=== PATIENT | female | born 1970 | race Caucasian/White ===

== ENCOUNTER → 2017-11-01 | Outpatient (CLI) | payer OTHER ==
[~2017-11-01] MED LIST: Bactrim Ds Tab1 EACH PO
== END ==
LOC: LAB SRC 14:28 → LAB SHORT 14:28
DX: R32 Unspecified urinary incontinence (principal); R35.0 Frequency of micturition
CPT/HCPCS: 87086

== ENCOUNTER 2017-11-10 11:30 | Inpatient (IN) | payer OTHER ==
[~2017-11-10] VITALS: Ht 167.6 cm; Wt 142.5 kg
[2017-11-10 11:54] LABS: Base Excess Venous 7.7 mmol/L; Bicarbonate Venous 29.1 mmol/L (24.0-30.0); PCO2 Venous 62.8 mmHg (38-42); PO2 Venous 66.6 mmHg (38-42); pH Blood Venous 7.34 (7.34-7.37)
[2017-11-10 12:01] LABS: Hematocrit 49.9 % (33.0-51.0); Mean Corpuscular HGB Conc 30.1 g/dL (31.5-36.5); Mean Platelet Volume 9.5 fL (9.1-12.4); NRBC ABSOLUTE 0.15 K/mm3 (0.00-0.02); NRBC Auto 1.5 /100 WBC (0.0-0.2); Platelet Count 308 K/mm3 (150-400); RDW Coefficient Variation 18.9 % (11.7-14.2); RDW Standard Deviation 51.8 fL (35.1-46.3); Red Blood Cell Count 6.24 M/mm3 (3.80-5.20); White Blood Cell Count 10.32 K/mm3 (4.00-11.30)
[2017-11-10 12:19] LABS: Alanine Aminotransfer (ALT/SGP 18 U/L (12-78); Albumin, Blood 2.7 g/dL (3.4-5.0); Albumin/Globulin Ratio 0.6 (0.8-1.8); Alk Phos 61 U/L (50-136); Anion Gap 9 mmol/L (6-16); Aspartate Aminotrans (AST/SGOT 25 U/L (12-37); Bilirubin, Total 0.3 mg/dL (0.1-1.0); Blood Urea Nitrogen 20 mg/dL (8-24); Bun/Creatinine Ratio 41.5 (12.0-20.0); CO2, Blood 31 mmol/L (21-32); Calcium, Blood 9.7 mg/dL (8.5-10.1); Chloride, Blood 92 mmol/L (98-108); Creatinine, Blood 0.48 mg/dL (0.40-1.00); Globulin, Blood 4.3 g/dL (2.2-4.0); Glomerular Filtration Rate >60 (60-); Glucose, Blood 145 mg/dL (70-99); Mean Corpuscular Volume 80 fL (80-100); Potassium, Blood 4.1 mmol/L (3.5-5.5); Sodium, Blood 132 mmol/L (136-145)
[2017-11-10 12:23] LABS: International Normalized Ratio 1.16; Prothrombin Time Results 12.1 Sec (9.7-11.5)
[2017-11-10] MEDS ORDERED: AMLO5 PO (12:23)
[2017-11-10] MEDS ORDERED: ATOR40TA PO (12:24)
[2017-11-10] MEDS ORDERED: VITAMIN D35000 UNIT PO (12:24)
[2017-11-10] MEDS ORDERED: FLUP5 PO (12:31)
[2017-11-10] MEDS ORDERED: GABA300 PO (12:31)
[2017-11-10] MEDS ORDERED: LOSA50 PO (12:32)
[2017-11-10] MEDS ORDERED: Metformin HCl1000 MG PO (12:32)
[2017-11-10 12:33] LABS: BAND PERCENT MAN 1 % (0-8); BASOPHILS PERCENT MAN 0 % (0-2); EOSINOPHILS PERCENT MAN 1 % (0-6); LYMPHOCYTES % ATYPICAL MANUAL 5 % (0-0); LYMPHOCYTES ABSOLUTE MAN 2.58 K/mm3 (0.84-5.20); LYMPHOCYTES PERCENT MAN 20 % (21-46); MONOCYTES ABSOLUTE MAN 1.03 K/mm3 (0.16-1.47); MONOCYTES PERCENT MAN 10 % (4-13); SEG NEUTROPHILS PERCENT MAN 63 % (41-73); TOTAL CELLS COUNTED 100
[2017-11-10] MEDS ORDERED: INVEGA SUS234 MG/1.5 IM (12:33)
[2017-11-10] MEDS ORDERED: TIOT18 INH (12:33)
[2017-11-10] MEDS ORDERED: METF500C PO (12:34)
[2017-11-10] MEDS ORDERED: INSU100I6 UD (12:34)
[2017-11-10] MEDS ORDERED: ALBU3IS INH (12:35)
[2017-11-10] MEDS ORDERED: TRAM50 PO (12:35)
[2017-11-10] MEDS ORDERED: HYDPAM25 PO (13:05)
[2017-11-10] MEDS ORDERED: BASAGLAR K100 UNIT/1 SC (13:07)
[2017-11-10 22:43] LABS: PO2 Arterial 81.6 mmHg (80-100); pH Blood Arterial 7.28 (7.35-7.45)
[2017-11-10 22:44] LABS: PCO2 Arterial 84.4 mmHg (35-45)
[2017-11-11 04:21] LABS: Hematocrit 47.3 % (33.0-51.0); Hemoglobin 13.8 g/dL (11.5-16.0); Mean Corpuscular HGB 23.9 pg (26.0-34.0); Mean Corpuscular HGB Conc 29.2 g/dL (31.5-36.5); Mean Corpuscular Volume 82 fL (80-100); Mean Platelet Volume 10.2 fL (9.1-12.4); NRBC ABSOLUTE 0.15 K/mm3 (0.00-0.02); NRBC Auto 1.8 /100 WBC (0.0-0.2); Platelet Count 279 K/mm3 (150-400); RDW Coefficient Variation 18.7 % (11.7-14.2); RDW Standard Deviation 54.1 fL (35.1-46.3); Red Blood Cell Count 5.78 M/mm3 (3.80-5.20); White Blood Cell Count 8.42 K/mm3 (4.00-11.30)
[2017-11-11 04:44] LABS: Anion Gap 7 mmol/L (6-16); Blood Urea Nitrogen 10 mg/dL (8-24); Bun/Creatinine Ratio 22.5 (12.0-20.0); CO2, Blood 36 mmol/L (21-32); Calcium, Blood 9.1 mg/dL (8.5-10.1); Chloride, Blood 98 mmol/L (98-108); Creatinine, Blood 0.45 mg/dL (0.40-1.00); Glomerular Filtration Rate >60 (60-); Glucose, Blood 106 mg/dL (70-99); Potassium, Blood 4.2 mmol/L (3.5-5.5); Sodium, Blood 141 mmol/L (136-145)
[2017-11-11 05:11] LABS: PCO2 Arterial 80.4 mmHg (35-45); PO2 Arterial 63.1 mmHg (80-100); pH Blood Arterial 7.31 (7.35-7.45)
[2017-11-11 05:41] LABS: BAND PERCENT MAN 4 % (0-8); BASOPHILS ABSOLUTE MAN 0.08 K/mm3 (0.00-0.23); BASOPHILS PERCENT MAN 1 % (0-2); EOSINOPHILS ABSOLUTE MAN 0.08 K/mm3 (0.00-0.68); EOSINOPHILS PERCENT MAN 1 % (0-6); LYMPHOCYTES % ATYPICAL MANUAL 1 % (0-0); LYMPHOCYTES PERCENT MAN 24 % (21-46); MONOCYTES ABSOLUTE MAN 0.67 K/mm3 (0.16-1.47); MONOCYTES PERCENT MAN 8 % (4-13); NEUTROPHILS ABSOLUTE MAN 5.47 K/mm3 (1.96-9.15); SEG NEUTROPHILS PERCENT MAN 61 % (41-73); TOTAL CELLS COUNTED 100
[2017-11-11] MEDS ORDERED: DIVA500ER PO (11:45)
[2017-11-11] MEDS ORDERED: FLUP5 PO (11:47)
[2017-11-11] MEDS ORDERED: MUPI1NAS (13:10)
[2017-11-11] MEDS ORDERED: ALBU90OI INH (13:10)
[2017-11-11] MEDS ORDERED: Nyamyc15 GM TOP (13:12)
[2017-11-12 01:34] LABS: PO2 Arterial 56.2 mmHg (80-100)
[2017-11-12 01:35] LABS: PCO2 Arterial 93.7 mmHg (35-45); pH Blood Arterial 7.27 (7.35-7.45)
[2017-11-12 02:48] LABS: PO2 Arterial 56.9 mmHg (80-100); pH Blood Arterial 7.29 (7.35-7.45)
[2017-11-12 03:42] LABS: U Amphetamine Screen Not Detected; U Barbituate Screen Not Detected; U Benzodiazapine Screen Not Detected; U Buprenorphine Screen Not Detected; U Cannabinoids Screen Not Detected; U Cocaine Screen Not Detected; U Methadone Screen Not Detected; U Methamphetamine Screen Not Detected; U Opiates Screen DETECTED; U Oxycodone Screen Not Detected; U Phencyclidine Screen Not Detected; U Propoxyphene Screen Not Detected
[2017-11-12 04:55] LABS: BASOPHILS ABSOLUTE AUTO 0.02 K/mm3 (0.00-0.23); BASOPHILS PERCENT AUTO 0 % (0-2); EOSINOPHILS ABSOLUTE AUTO 0.01 K/mm3 (0.00-0.68); EOSINOPHILS PERCENT AUTO 0 % (0-6); Hematocrit 48.8 % (33.0-51.0); IMMATURE GRAN ABSOLUTE AUTO 0.04 K/mm3 (0.00-0.10); IMMATURE GRAN PERCENT AUTO 1 % (0-1); LYMPHOCYTES ABSOLUTE AUTO 1.42 K/mm3 (0.84-5.20); LYMPHOCYTES PERCENT AUTO 17 % (21-46); MONOCYTES ABSOLUTE AUTO 0.32 K/mm3 (0.16-1.47); MONOCYTES PERCENT AUTO 4 % (4-13); Mean Corpuscular HGB 24.1 pg (26.0-34.0); Mean Corpuscular HGB Conc 28.7 g/dL (31.5-36.5); Mean Corpuscular Volume 84 fL (80-100); Mean Platelet Volume 10.4 fL (9.1-12.4); NEUTROPHILS ABSOLUTE AUTO 6.46 K/mm3 (1.96-9.15); NEUTROPHILS PERCENT AUTO 78 % (41-73); NRBC ABSOLUTE 0.06 K/mm3 (0.00-0.02); NRBC Auto 0.7 /100 WBC (0.0-0.2); Platelet Count 270 K/mm3 (150-400); RDW Coefficient Variation 18.9 % (11.7-14.2); RDW Standard Deviation 54.9 fL (35.1-46.3); Red Blood Cell Count 5.82 M/mm3 (3.80-5.20); White Blood Cell Count 8.27 K/mm3 (4.00-11.30)
[2017-11-12 05:00] LABS: PCO2 Arterial 86.6 mmHg (35-45); PO2 Arterial 74.1 mmHg (80-100); pH Blood Arterial 7.29 (7.35-7.45)
[2017-11-12 05:13] LABS: Anion Gap 4 mmol/L (6-16); Blood Urea Nitrogen 13 mg/dL (8-24); Bun/Creatinine Ratio 30.3 (12.0-20.0); CO2, Blood 38 mmol/L (21-32); Calcium, Blood 9.2 mg/dL (8.5-10.1); Chloride, Blood 98 mmol/L (98-108); Creatinine, Blood 0.43 mg/dL (0.40-1.00); Glomerular Filtration Rate >60 (60-); Glucose, Blood 152 mg/dL (70-99); Potassium, Blood 4.9 mmol/L (3.5-5.5); Sodium, Blood 140 mmol/L (136-145)
[2017-11-12 15:34] LABS: Vancomycin, Trough 13.7 ug/mL (5.0-10.0)
[2017-11-13 04:09] LABS: BASOPHILS ABSOLUTE AUTO 0.02 K/mm3 (0.00-0.23); BASOPHILS PERCENT AUTO 0 % (0-2); EOSINOPHILS ABSOLUTE AUTO 0.01 K/mm3 (0.00-0.68); EOSINOPHILS PERCENT AUTO 0 % (0-6); Hemoglobin 13.1 g/dL (11.5-16.0); IMMATURE GRAN ABSOLUTE AUTO 0.03 K/mm3 (0.00-0.10); IMMATURE GRAN PERCENT AUTO 0 % (0-1); LYMPHOCYTES PERCENT AUTO 18 % (21-46); MONOCYTES ABSOLUTE AUTO 0.44 K/mm3 (0.16-1.47); MONOCYTES PERCENT AUTO 6 % (4-13); Mean Corpuscular HGB Conc 28.5 g/dL (31.5-36.5); Mean Corpuscular Volume 84 fL (80-100); Mean Platelet Volume 10.2 fL (9.1-12.4); NEUTROPHILS ABSOLUTE AUTO 5.26 K/mm3 (1.96-9.15); NEUTROPHILS PERCENT AUTO 75 % (41-73); NRBC ABSOLUTE 0.04 K/mm3 (0.00-0.02); NRBC Auto 0.6 /100 WBC (0.0-0.2); Platelet Count 260 K/mm3 (150-400); RDW Coefficient Variation 18.3 % (11.7-14.2); RDW Standard Deviation 55.5 fL (35.1-46.3); Red Blood Cell Count 5.46 M/mm3 (3.80-5.20); White Blood Cell Count 7.06 K/mm3 (4.00-11.30)
[2017-11-13 04:24] LABS: Anion Gap 2 mmol/L (6-16); Blood Urea Nitrogen 13 mg/dL (8-24); CO2, Blood 39 mmol/L (21-32); Calcium, Blood 9.4 mg/dL (8.5-10.1); Chloride, Blood 97 mmol/L (98-108); Creatinine, Blood 0.39 mg/dL (0.40-1.00); Glomerular Filtration Rate >60 (60-); Glucose, Blood 180 mg/dL (70-99); Potassium, Blood 4.8 mmol/L (3.5-5.5); Sodium, Blood 138 mmol/L (136-145)
[2017-11-13 05:12] LABS: pH Blood Arterial 7.36 (7.35-7.45)
[2017-11-13 05:13] LABS: PCO2 Arterial 75.2 mmHg (35-45)
[2017-11-14 07:18] LABS: BASOPHILS ABSOLUTE AUTO 0.03 K/mm3 (0.00-0.23); BASOPHILS PERCENT AUTO 0 % (0-2); EOSINOPHILS ABSOLUTE AUTO 0.01 K/mm3 (0.00-0.68); EOSINOPHILS PERCENT AUTO 0 % (0-6); Hematocrit 46.1 % (33.0-51.0); Hemoglobin 13.4 g/dL (11.5-16.0); IMMATURE GRAN ABSOLUTE AUTO 0.04 K/mm3 (0.00-0.10); IMMATURE GRAN PERCENT AUTO 1 % (0-1); LYMPHOCYTES ABSOLUTE AUTO 1.84 K/mm3 (0.84-5.20); LYMPHOCYTES PERCENT AUTO 23 % (21-46); MONOCYTES ABSOLUTE AUTO 0.76 K/mm3 (0.16-1.47); MONOCYTES PERCENT AUTO 9 % (4-13); Mean Corpuscular HGB 23.9 pg (26.0-34.0); Mean Corpuscular HGB Conc 29.1 g/dL (31.5-36.5); Mean Corpuscular Volume 82 fL (80-100); Mean Platelet Volume 9.6 fL (9.1-12.4); NEUTROPHILS PERCENT AUTO 67 % (41-73); NRBC ABSOLUTE 0.02 K/mm3 (0.00-0.02); NRBC Auto 0.2 /100 WBC (0.0-0.2); Platelet Count 260 K/mm3 (150-400); RDW Coefficient Variation 18.6 % (11.7-14.2); RDW Standard Deviation 54.6 fL (35.1-46.3); White Blood Cell Count 8.18 K/mm3 (4.00-11.30)
[2017-11-14 07:32] LABS: Anion Gap 5 mmol/L (6-16); Blood Urea Nitrogen 15 mg/dL (8-24); Bun/Creatinine Ratio 39.2 (12.0-20.0); CO2, Blood 39 mmol/L (21-32); Calcium, Blood 9.3 mg/dL (8.5-10.1); Chloride, Blood 96 mmol/L (98-108); Creatinine, Blood 0.38 mg/dL (0.40-1.00); Glomerular Filtration Rate >60 (60-); Glucose, Blood 227 mg/dL (70-99); Potassium, Blood 4.4 mmol/L (3.5-5.5); Sodium, Blood 140 mmol/L (136-145)
[2017-11-14 07:33] LABS: Vancomycin, Trough 6.2 ug/mL (5.0-10.0)
[2017-11-16] MEDS ORDERED: INSDET100 SC (12:17)
[2017-11-16] MEDS ORDERED: Aspir 8181 MG PO (12:21)
[2017-11-16] MEDS ORDERED: BENZ100A PO (12:23)
[2017-11-16] MEDS ORDERED: CARV6.25 PO (12:24)
[2017-11-16] MEDS ORDERED: BUDE.5 NEB (12:24)
[2017-11-16] MEDS ORDERED: DOCU100 PO (12:25)
[2017-11-16] MEDS ORDERED: ALBU3IS INH (12:26)
[2017-11-16] MEDS ORDERED: LEVO750 PO (12:27)
[2017-11-16] MEDS ORDERED: DELTASONE20 MG PO (12:28)
[2017-11-16] MEDS ORDERED: PANT40 PO (12:29)
== END 2017-11-16 15:18 | disposition home or self-care (01) | DRG 871 ==
LOC: ER 11:30 → PCU 13:17 → ICUW 11-12 02:24 → ICUE 11-13 19:30 → PCU 11-14 10:25
PROVIDERS: Emergency Medicine; Internal Medicine; Internal Medicine Pulmonary Disease; Pharmacist
DX: A41.9 Sepsis, unspecified organism (principal); J18.9 Pneumonia, unspecified organism; J96.21 Acute and chronic respiratory failure with hypoxia; I21.4 Non-ST elevation (NSTEMI) myocardial infarction; G93.40 Encephalopathy, unspecified; J96.22 Acute and chronic respiratory failure with hypercapnia; J44.0 Chronic obstructive pulmonary disease with (acute) lower respiratory infection; J44.1 Chronic obstructive pulmonary disease with (acute) exacerbation; E66.2 Morbid (severe) obesity with alveolar hypoventilation; Z68.43 Body mass index [BMI] 50.0-59.9, adult; F20.9 Schizophrenia, unspecified; I10 Essential (primary) hypertension; Z79.4 Long term (current) use of insulin; F25.9 Schizoaffective disorder, unspecified; G47.33 Obstructive sleep apnea (adult) (pediatric); E78.5 Hyperlipidemia, unspecified; E11.65 Type 2 diabetes mellitus with hyperglycemia; R65.20 Severe sepsis without septic shock
CPT/HCPCS: 36415; 36600; 51702; 71045; 71046; 80048; 80053; 80202; 82803; 82947; 83880; 84443; 84484; 85025; 85610; 93005; 93010; 93306; 94640; 94660; 94761; 94762; 96374; 99285; C9113; J1650; J1815; J1956; J2920; J3370; J7030; J7050; J7120; Q0177

== ENCOUNTER 2019-11-06 13:42 | Emergency (ER) | payer OTHER ==
[~2019-11-06] VITALS: Ht 162.6 cm; Wt 139.2 kg
[~2019-11-06 13:42] MED LIST changes: +ALBU3IS INH; +ALBU90OI INH; +AMLO5 PO; +ATOR40TA PO; +Aspir 8181 MG PO; +BASAGLAR K100 UNIT/1 SC; +BENZ100A PO; +BUDE.5 NEB; +CARV6.25 PO; +DELTASONE20 MG PO; +DIVA500ER PO; +DOCU100 PO; +FLUP5 PO; +GABA300 PO; +HYDPAM25 PO; +INSDET100 SC; +INSU100I6 UD; +INVEGA SUS234 MG/1.5 IM; +LEVO750 PO; +LOSA50 PO; +METF500C PO; +MUPI1NAS; +Metformin HCl1000 MG PO; +Nyamyc15 GM TOP; +PANT40 PO; +TIOT18 INH; +TRAM50 PO; +VITAMIN D35000 UNIT PO
[2019-11-06 15:33] LABS: BASOPHILS ABSOLUTE AUTO 0.07 K/mm3 (0.00-0.23); BASOPHILS PERCENT AUTO 1 % (0-2); EOSINOPHILS ABSOLUTE AUTO 0.14 K/mm3 (0.00-0.68); EOSINOPHILS PERCENT AUTO 2 % (0-6); Hematocrit 43.7 % (33.0-51.0); Hemoglobin 12.9 g/dL (11.5-16.0); IMMATURE GRAN ABSOLUTE AUTO 0.02 K/mm3 (0.00-0.10); IMMATURE GRAN PERCENT AUTO 0 % (0-1); LYMPHOCYTES ABSOLUTE AUTO 3.63 K/mm3 (0.84-5.20); LYMPHOCYTES PERCENT AUTO 41 % (21-46); MONOCYTES ABSOLUTE AUTO 0.81 K/mm3 (0.16-1.47); MONOCYTES PERCENT AUTO 9 % (4-13); Mean Corpuscular HGB 28.2 pg (26.0-34.0); Mean Corpuscular HGB Conc 29.5 g/dL (31.5-36.5); Mean Corpuscular Volume 95 fL (80-100); Mean Platelet Volume 11.4 fL (9.1-12.4); NEUTROPHILS ABSOLUTE AUTO 4.09 K/mm3 (1.96-9.15); NEUTROPHILS PERCENT AUTO 47 % (41-73); Platelet Count 229 K/mm3 (150-400); RDW Coefficient Variation 15.1 % (11.7-14.2); RDW Standard Deviation 52.8 fL (35.1-46.3); Red Blood Cell Count 4.58 M/mm3 (3.80-5.20); White Blood Cell Count 8.76 K/mm3 (4.00-11.30)
[2019-11-06 15:51] LABS: Anion Gap 5 mmol/L (6-16); Blood Urea Nitrogen 10 mg/dL (8-24); Bun/Creatinine Ratio 23.3 (12.0-20.0); CO2, Blood 34 mmol/L (21-32); Chloride, Blood 102 mmol/L (98-108); Creatinine, Blood 0.43 mg/dL (0.40-1.00); Glomerular Filtration Rate >60 (60-); Glucose, Blood 142 mg/dL (70-99); Potassium, Blood 4.3 mmol/L (3.5-5.5); Sodium, Blood 141 mmol/L (136-145)
[2019-11-06 16:05] LABS: Source, Urine Clean Catch
[2019-11-06 16:09] LABS: PCO2 Venous 63.2 mmHg (38-42); pH Blood Venous 7.36 (7.34-7.37)
[2019-11-06 16:10] LABS: Bicarbonate Venous 31.6 mmol/L (24.0-30.0); PO2 Venous 91.7 mmHg (38-42)
[2019-11-06 16:15] LABS: Bilirubin, Urine Neg (Neg); Blood, Urine Neg (Neg); Glucose Qualitative, Urine Neg (Neg); Ketones, Urine 1+ (Neg); Leukocyte Esterase, Urine 1+ (Neg); Nitrite, Urine Neg (Neg); Protein, Urine 1+ (Neg); Urobilinogen, Urine 1+ (Normal)
[2019-11-06 16:22] LABS: Appearance, Urine Clear (Clear); Color, Urine Yellow (P-Yellow); White Blood Cells, Urine 0-2 /hpf (0-5)
[2019-11-06 16:23] LABS: Bacteria Few /hpf; Red Blood Cells, Urine Not Seen /hpf (0-2); Squamous Epithelial Cells Few /hpf (Few)
== END 2019-11-06 18:49 | disposition home or self-care (01) ==
LOC: ER 13:42
PROVIDERS: Emergency Medicine; Physician Assistant
DX: J44.9 Chronic obstructive pulmonary disease, unspecified (principal); R42 Dizziness and giddiness; F20.9 Schizophrenia, unspecified; F17.210 Nicotine dependence, cigarettes, uncomplicated; E11.9 Type 2 diabetes mellitus without complications; I10 Essential (primary) hypertension; E78.5 Hyperlipidemia, unspecified; Z87.01 Personal history of pneumonia (recurrent); Z88.0 Allergy status to penicillin; Z88.8 Allergy status to other drugs, medicaments and biological substances; Z79.4 Long term (current) use of insulin; Z79.82 Long term (current) use of aspirin; Z79.899 Other long term (current) drug therapy; Z79.891 Long term (current) use of opiate analgesic
CPT/HCPCS: 36415; 70450; 71045; 80048; 81001; 82803; 83880; 84484; 85025; 87077; 87086; 87186; 93005; 93010; 99285-25

== ENCOUNTER 2020-05-01 16:44 | Emergency (ER) | payer OTHER ==
[~2020-05-01] VITALS: Ht 160 cm; Wt 138.3 kg
[2020-05-01 20:39] LABS: BASOPHILS PERCENT AUTO 1 % (0-2); EOSINOPHILS ABSOLUTE AUTO 0.16 K/mm3 (0.00-0.68); EOSINOPHILS PERCENT AUTO 2 % (0-6); Hematocrit 43.2 % (33.0-51.0); IMMATURE GRAN ABSOLUTE AUTO 0.02 K/mm3 (0.00-0.10); IMMATURE GRAN PERCENT AUTO 0 % (0-1); LYMPHOCYTES ABSOLUTE AUTO 4.12 K/mm3 (0.84-5.20); LYMPHOCYTES PERCENT AUTO 45 % (21-46); MONOCYTES ABSOLUTE AUTO 0.83 K/mm3 (0.16-1.47); MONOCYTES PERCENT AUTO 9 % (4-13); Mean Corpuscular HGB 26.2 pg (26.0-34.0); Mean Corpuscular HGB Conc 30.1 g/dL (31.5-36.5); Mean Corpuscular Volume 87 fL (80-100); Mean Platelet Volume 11.3 fL (9.1-12.4); NEUTROPHILS ABSOLUTE AUTO 3.89 K/mm3 (1.96-9.15); NEUTROPHILS PERCENT AUTO 43 % (41-73); Platelet Count 226 K/mm3 (150-400); RDW Coefficient Variation 16.1 % (11.7-14.2); RDW Standard Deviation 51.4 fL (35.1-46.3); Red Blood Cell Count 4.96 M/mm3 (3.80-5.20); White Blood Cell Count 9.12 K/mm3 (4.00-11.30)
[2020-05-01 20:57] LABS: Alanine Aminotransfer (ALT/SGP 18 U/L (12-78); Albumin, Blood 3.1 g/dL (3.4-5.0); Albumin/Globulin Ratio 0.8 (0.8-1.8); Alk Phos 59 U/L (50-136); Anion Gap 3 mmol/L (6-16); Aspartate Aminotrans (AST/SGOT 13 U/L (12-37); Bilirubin, Total 0.2 mg/dL (0.1-1.0); Blood Urea Nitrogen 10 mg/dL (8-24); Bun/Creatinine Ratio 25.8 (12.0-20.0); CO2, Blood 35 mmol/L (21-32); Calcium, Blood 9.2 mg/dL (8.5-10.1); Chloride, Blood 99 mmol/L (98-108); Creatinine, Blood 0.39 mg/dL (0.40-1.00); Globulin, Blood 4.1 g/dL (2.2-4.0); Glomerular Filtration Rate >60 (60-); Glucose, Blood 211 mg/dL (70-99); Potassium, Blood 4.3 mmol/L (3.5-5.5); Sodium, Blood 137 mmol/L (136-145); Total Protein, Blood 7.2 g/dL (6.4-8.2)
[2020-05-01 21:22] LABS: Ethanol (Alcohol), Blood, Med <3 mg/dL; Salicylate 4.7 mg/dL (2.8-20.0)
[2020-05-01 21:24] LABS: Acetaminophen, Random <2.0 ug/mL (10.0-30.0)
[2020-05-01 21:43] LABS: Source, Urine Clean Catch
[2020-05-01 21:45] LABS: CPK Creatine Kinase 48 U/L (26-193); Troponin I <0.015 ng/mL (0.000-0.040)
[2020-05-01 21:48] LABS: Appearance, Urine Clear (Clear); Bilirubin, Urine Neg (Neg); Blood, Urine Neg (Neg); Color, Urine Yellow (P-Yellow); Glucose Qualitative, Urine 2+ (Neg); Ketones, Urine Neg (Neg); Leukocyte Esterase, Urine Neg (Neg); Nitrite, Urine Neg (Neg); Protein, Urine Neg (Neg); Specific Gravity, Urine 1.015 (1.003-1.022); Urobilinogen, Urine NORM (Normal); pH, Urine 6.5 (5.0-8.0)
[2020-05-01 22:01] LABS: U Amphetamine Screen Not Detected; U Barbituate Screen Not Detected; U Benzodiazapine Screen Not Detected; U Buprenorphine Screen Not Detected; U Cannabinoids Screen Not Detected; U Cocaine Screen Not Detected; U Methadone Screen Not Detected; U Methamphetamine Screen Not Detected; U Opiates Screen Not Detected; U Oxycodone Screen Not Detected; U Phencyclidine Screen Not Detected
[2020-05-01 22:02] LABS: U Propoxyphene Screen Not Detected
== END 2020-05-01 23:38 | disposition home or self-care (01) ==
LOC: ER 16:44
PROVIDERS: Emergency Medicine
DX: R53.1 Weakness (principal); J44.9 Chronic obstructive pulmonary disease, unspecified; F20.9 Schizophrenia, unspecified; E11.9 Type 2 diabetes mellitus without complications; I10 Essential (primary) hypertension; E78.5 Hyperlipidemia, unspecified; F17.210 Nicotine dependence, cigarettes, uncomplicated; Z79.899 Other long term (current) drug therapy; Z79.4 Long term (current) use of insulin; Z79.82 Long term (current) use of aspirin; Z79.52 Long term (current) use of systemic steroids; Z88.0 Allergy status to penicillin; Z88.8 Allergy status to other drugs, medicaments and biological substances
CPT/HCPCS: 36415; 71046; 80053; 81003; 82550; 83605; 84484; 85025; 93005; 93010; 96360; 99284-25; G0480; J7030

== ENCOUNTER 2020-08-16 08:52 | Emergency (ER) | payer OTHER ==
[~2020-08-16] VITALS: Ht 162.6 cm; Wt 140.6 kg
[2020-08-16 10:31] LABS: BASOPHILS ABSOLUTE AUTO 0.07 K/mm3 (0.00-0.23); BASOPHILS PERCENT AUTO 1 % (0-2); EOSINOPHILS PERCENT AUTO 1 % (0-6); Hematocrit 42.6 % (33.0-51.0); Hemoglobin 13.1 g/dL (11.5-16.0); IMMATURE GRAN ABSOLUTE AUTO 0.04 K/mm3 (0.00-0.10); IMMATURE GRAN PERCENT AUTO 0 % (0-1); LYMPHOCYTES ABSOLUTE AUTO 2.25 K/mm3 (0.84-5.20); LYMPHOCYTES PERCENT AUTO 25 % (21-46); MONOCYTES ABSOLUTE AUTO 0.79 K/mm3 (0.16-1.47); MONOCYTES PERCENT AUTO 9 % (4-13); Mean Corpuscular HGB 27.5 pg (26.0-34.0); Mean Corpuscular HGB Conc 30.8 g/dL (31.5-36.5); Mean Corpuscular Volume 90 fL (80-100); Mean Platelet Volume 11.1 fL (9.1-12.4); NEUTROPHILS ABSOLUTE AUTO 5.76 K/mm3 (1.96-9.15); NEUTROPHILS PERCENT AUTO 64 % (41-73); NRBC ABSOLUTE 0.02 K/mm3 (0.00-0.02); NRBC Auto 0.2 /100 WBC (0.0-0.2); Platelet Count 269 K/mm3 (150-400); RDW Coefficient Variation 17.2 % (11.7-14.2); RDW Standard Deviation 56.5 fL (35.1-46.3); Red Blood Cell Count 4.76 M/mm3 (3.80-5.20); White Blood Cell Count 9.01 K/mm3 (4.00-11.30)
[2020-08-16 10:45] LABS: Alanine Aminotransfer (ALT/SGP 20 U/L (12-78); Albumin, Blood 3.2 g/dL (3.4-5.0); Albumin/Globulin Ratio 0.8 (0.8-1.8); Alk Phos 74 U/L (50-136); Anion Gap 3 mmol/L (6-16); Aspartate Aminotrans (AST/SGOT 12 U/L (12-37); Bilirubin, Total 0.2 mg/dL (0.1-1.0); Blood Urea Nitrogen 9 mg/dL (8-24); Bun/Creatinine Ratio 18.1 (12.0-20.0); CO2, Blood 33 mmol/L (21-32); Calcium, Blood 9.2 mg/dL (8.5-10.1); Chloride, Blood 100 mmol/L (98-108); Ethanol (Alcohol), Blood, Med <3 mg/dL; Glomerular Filtration Rate >60 (60-); Glucose, Blood 383 mg/dL (70-99); Potassium, Blood 3.9 mmol/L (3.5-5.5); Salicylate 4.7 mg/dL (2.8-20.0); Sodium, Blood 136 mmol/L (136-145); Total Protein, Blood 7.2 g/dL (6.4-8.2)
[2020-08-16 10:58] LABS: Acetaminophen, Random <2.0 ug/mL (10.0-30.0)
[2020-10-19] MEDS ORDERED: ATROVENT HFA12.9 GM INH (17:36)
[2020-10-19] MEDS ORDERED: ALBU90OI INH (17:36)
[2020-10-19] MEDS ORDERED: Prednisone50 MG PO (17:36)
== END 2020-08-16 11:55 | disposition home or self-care (01) ==
LOC: ER 08:52
PROVIDERS: Emergency Medicine
DX: F20.9 Schizophrenia, unspecified (principal); Z76.5 Malingerer [conscious simulation]; E11.65 Type 2 diabetes mellitus with hyperglycemia; I10 Essential (primary) hypertension; E78.5 Hyperlipidemia, unspecified; J44.9 Chronic obstructive pulmonary disease, unspecified; Z79.4 Long term (current) use of insulin; Z88.0 Allergy status to penicillin; Z88.8 Allergy status to other drugs, medicaments and biological substances
CPT/HCPCS: 36415; 80053; 85025; 99285; G0480; J1815; Q3014

== ENCOUNTER 2020-09-04 14:16 | Emergency (ER) | payer OTHER ==
[2020-10-19] MEDS ORDERED: ATROVENT HFA12.9 GM INH (17:36)
[2020-10-19] MEDS ORDERED: Prednisone50 MG PO (17:36)
[2020-10-19] MEDS ORDERED: ALBU90OI INH (17:36)
== END 2020-09-04 15:13 | disposition left against medical advice (07) ==
LOC: ER 14:16
DX: Z53.21 Procedure and treatment not carried out due to patient leaving prior to being seen by health care provider (principal)

== ENCOUNTER 2020-09-25 16:13 | Emergency (ER) | payer OTHER ==
[~2020-09-25] VITALS: Ht 162.6 cm; Wt 136.1 kg
[2020-09-25 16:55] LABS: BASOPHILS ABSOLUTE AUTO 0.12 K/mm3 (0.00-0.23); BASOPHILS PERCENT AUTO 1 % (0-2); EOSINOPHILS ABSOLUTE AUTO 0.11 K/mm3 (0.00-0.68); EOSINOPHILS PERCENT AUTO 1 % (0-6); Hematocrit 45.3 % (33.0-51.0); Hemoglobin 13.6 g/dL (11.5-16.0); IMMATURE GRAN ABSOLUTE AUTO 0.04 K/mm3 (0.00-0.10); IMMATURE GRAN PERCENT AUTO 0 % (0-1); LYMPHOCYTES PERCENT AUTO 37 % (21-46); MONOCYTES ABSOLUTE AUTO 1.05 K/mm3 (0.16-1.47); MONOCYTES PERCENT AUTO 9 % (4-13); Mean Corpuscular HGB 24.8 pg (26.0-34.0); Mean Corpuscular Volume 83 fL (80-100); Mean Platelet Volume 11.4 fL (9.1-12.4); NEUTROPHILS ABSOLUTE AUTO 5.91 K/mm3 (1.96-9.15); NEUTROPHILS PERCENT AUTO 52 % (41-73); NRBC ABSOLUTE 0.04 K/mm3 (0.00-0.02); NRBC Auto 0.3 /100 WBC (0.0-0.2); Platelet Count 281 K/mm3 (150-400); RDW Coefficient Variation 17.7 % (11.7-14.2); RDW Standard Deviation 52.5 fL (35.1-46.3); Red Blood Cell Count 5.49 M/mm3 (3.80-5.20); White Blood Cell Count 11.43 K/mm3 (4.00-11.30)
[2020-09-25 17:14] LABS: Alanine Aminotransfer (ALT/SGP 14 U/L (12-78); Albumin, Blood 3.1 g/dL (3.4-5.0); Albumin/Globulin Ratio 0.7 (0.8-1.8); Alk Phos 84 U/L (50-136); Anion Gap 4 mmol/L (6-16); Aspartate Aminotrans (AST/SGOT 11 U/L (12-37); Bilirubin, Total 0.2 mg/dL (0.1-1.0); Blood Urea Nitrogen 7 mg/dL (8-24); Bun/Creatinine Ratio 16.1 (12.0-20.0); CO2, Blood 32 mmol/L (21-32); Calcium, Blood 9.6 mg/dL (8.5-10.1); Chloride, Blood 96 mmol/L (98-108); Creatinine, Blood 0.44 mg/dL (0.40-1.00); Globulin, Blood 4.4 g/dL (2.2-4.0); Glomerular Filtration Rate >60 (60-); Glucose, Blood 387 mg/dL (70-99); Potassium, Blood 4.5 mmol/L (3.5-5.5); Sodium, Blood 132 mmol/L (136-145); Total Protein, Blood 7.5 g/dL (6.4-8.2)
[2020-09-25 19:33] LABS: Base Excess Venous 9.5 mmol/L; Bicarbonate Venous 31.6 mmol/L (24.0-30.0); PCO2 Venous 49.5 mmHg (38-42); PO2 Venous 45.2 mmHg (38-42); pH Blood Venous 7.44 (7.34-7.37)
[2020-09-25 19:33] LABS: Source, Urine Clean Catch
[2020-09-25 19:40] LABS: Appearance, Urine Clear (Clear); Bilirubin, Urine Neg (Neg); Blood, Urine Neg (Neg); Color, Urine Amber (P-Yellow); Glucose Qualitative, Urine 3+ (Neg); Ketones, Urine 1+ (Neg); Leukocyte Esterase, Urine 1+ (Neg); Nitrite, Urine Neg (Neg); Protein, Urine 1+ (Neg); Urobilinogen, Urine 1+ (Normal)
[2020-09-25 19:48] LABS: Bacteria Rare /hpf; Red Blood Cells, Urine 0-2 /hpf (0-2); Squamous Epithelial Cells Mod /hpf (Few)
[2020-09-25 19:52] LABS: U Amphetamine Screen Not Detected; U Barbituate Screen Not Detected; U Benzodiazapine Screen Not Detected; U Buprenorphine Screen Not Detected; U Cannabinoids Screen Not Detected; U Cocaine Screen Not Detected; U Methadone Screen Not Detected; U Methamphetamine Screen Not Detected; U Opiates Screen Not Detected; U Oxycodone Screen Not Detected; U Phencyclidine Screen Not Detected; U Propoxyphene Screen Not Detected
== END 2020-09-25 21:20 | disposition home or self-care (01) ==
LOC: ER 16:13
PROVIDERS: Physician Assistant
DX: E11.65 Type 2 diabetes mellitus with hyperglycemia (principal); J44.9 Chronic obstructive pulmonary disease, unspecified; I10 Essential (primary) hypertension; E78.5 Hyperlipidemia, unspecified; F17.200 Nicotine dependence, unspecified, uncomplicated; Z79.52 Long term (current) use of systemic steroids; Z79.4 Long term (current) use of insulin; Z79.899 Other long term (current) drug therapy; Z88.0 Allergy status to penicillin; Z88.8 Allergy status to other drugs, medicaments and biological substances
CPT/HCPCS: 36415; 80053; 81001; 82803; 82947; 83880; 84484; 85025; 93005; 93010; 99285-25; J1815

== ENCOUNTER 2020-11-13 12:37 | Emergency (ER) | payer OTHER ==
[~2020-11-13] VITALS: Ht 162.6 cm; Wt 136.1 kg
[~2020-11-13 12:37] MED LIST changes: +ATROVENT HFA12.9 GM INH; +Prednisone50 MG PO
[2020-11-13 13:22] LABS: BASOPHILS ABSOLUTE AUTO 0.09 K/mm3 (0.00-0.23); BASOPHILS PERCENT AUTO 1 % (0-2); EOSINOPHILS ABSOLUTE AUTO 0.13 K/mm3 (0.00-0.68); EOSINOPHILS PERCENT AUTO 1 % (0-6); Hematocrit 45.3 % (33.0-51.0); Hemoglobin 12.6 g/dL (11.5-16.0); IMMATURE GRAN ABSOLUTE AUTO 0.03 K/mm3 (0.00-0.10); IMMATURE GRAN PERCENT AUTO 0 % (0-1); LYMPHOCYTES PERCENT AUTO 29 % (21-46); MONOCYTES PERCENT AUTO 7 % (4-13); Mean Corpuscular HGB 21.5 pg (26.0-34.0); Mean Corpuscular HGB Conc 27.8 g/dL (31.5-36.5); Mean Corpuscular Volume 77 fL (80-100); Mean Platelet Volume 10.6 fL (9.1-12.4); NEUTROPHILS ABSOLUTE AUTO 6.54 K/mm3 (1.96-9.15); NEUTROPHILS PERCENT AUTO 62 % (41-73); NRBC ABSOLUTE 0.09 K/mm3 (0.00-0.02); NRBC Auto 0.9 /100 WBC (0.0-0.2); Platelet Count 195 K/mm3 (150-400); RDW Standard Deviation 56.5 fL (35.1-46.3); Red Blood Cell Count 5.85 M/mm3 (3.80-5.20); White Blood Cell Count 10.49 K/mm3 (4.00-11.30)
[2020-11-13 13:36] LABS: Alanine Aminotransfer (ALT/SGP 12 U/L (12-78); Albumin, Blood 2.8 g/dL (3.4-5.0); Albumin/Globulin Ratio 0.6 (0.8-1.8); Alk Phos 85 U/L (50-136); Anion Gap 6 mmol/L (6-16); Aspartate Aminotrans (AST/SGOT 11 U/L (12-37); Bilirubin, Total 0.5 mg/dL (0.1-1.0); Blood Urea Nitrogen 5 mg/dL (8-24); CO2, Blood 33 mmol/L (21-32); Calcium, Blood 9.3 mg/dL (8.5-10.1); Chloride, Blood 92 mmol/L (98-108); Globulin, Blood 4.9 g/dL (2.2-4.0); Glomerular Filtration Rate >60 (60-); Glucose, Blood 366 mg/dL (70-99); Potassium, Blood 3.9 mmol/L (3.5-5.5); Sodium, Blood 131 mmol/L (136-145); Total Protein, Blood 7.7 g/dL (6.4-8.2)
[2020-11-13 16:05] LABS: Base Excess Venous 12.4 mmol/L; Bicarbonate Venous 33.7 mmol/L (24.0-30.0); PCO2 Venous 62.9 mmHg (38-42); PO2 Venous 54.5 mmHg (38-42); pH Blood Venous 7.38 (7.34-7.37)
[2020-11-13 16:57] LABS: Source, Urine Voided
[2020-11-13 17:01] LABS: Appearance, Urine Hazy (Clear); Bilirubin, Urine Neg (Neg); Blood, Urine 1+ (Neg); Color, Urine Yellow (P-Yellow); Glucose Qualitative, Urine 4+ (Neg); Ketones, Urine Neg (Neg); Leukocyte Esterase, Urine 3+ (Neg); Nitrite, Urine Neg (Neg); Protein, Urine 1+ (Neg); Specific Gravity, Urine 1.005 (1.003-1.022); Urobilinogen, Urine NORM (Normal)
[2020-11-13 17:09] LABS: Bacteria Many /hpf; Red Blood Cells, Urine 0-2 /hpf (0-2); Squamous Epithelial Cells Many /hpf (Few)
[2020-11-13] MEDS ORDERED: Macrobid 100 M100 MG PO (18:26)
[2020-11-13] MEDS ORDERED: NYSTRIT TOP (18:26)
== END 2020-11-13 18:35 | disposition left against medical advice (07) ==
LOC: ER 12:37
PROVIDERS: Emergency Medicine; Physician Assistant
DX: E11.65 Type 2 diabetes mellitus with hyperglycemia (principal); N39.0 Urinary tract infection, site not specified; B35.6 Tinea cruris; J44.9 Chronic obstructive pulmonary disease, unspecified; I10 Essential (primary) hypertension; E78.5 Hyperlipidemia, unspecified; F17.200 Nicotine dependence, unspecified, uncomplicated; Z79.4 Long term (current) use of insulin; Z88.0 Allergy status to penicillin; Z88.8 Allergy status to other drugs, medicaments and biological substances; Z79.899 Other long term (current) drug therapy
CPT/HCPCS: 36415; 80053; 81001; 82803; 82947; 85025; 87086; 87147; 94640; 99284-25; J7120

== ENCOUNTER 2020-11-29 11:37 | Inpatient (IN) | payer OTHER ==
[~2020-11-29] VITALS: Ht 154.9 cm; Wt 132.7 kg
[~2020-11-29 11:37] MED LIST changes: +Macrobid 100 M100 MG PO; +NYSTRIT TOP
[2020-11-29 12:45] LABS: BASOPHILS ABSOLUTE AUTO 0.05 K/mm3 (0.00-0.23); BASOPHILS PERCENT AUTO 1 % (0-2); EOSINOPHILS ABSOLUTE AUTO 0.14 K/mm3 (0.00-0.68); EOSINOPHILS PERCENT AUTO 2 % (0-6); Hematocrit 42.3 % (33.0-51.0); Hemoglobin 11.6 g/dL (11.5-16.0); IMMATURE GRAN ABSOLUTE AUTO 0.03 K/mm3 (0.00-0.10); IMMATURE GRAN PERCENT AUTO 0 % (0-1); LYMPHOCYTES ABSOLUTE AUTO 2.66 K/mm3 (0.84-5.20); LYMPHOCYTES PERCENT AUTO 32 % (21-46); MONOCYTES ABSOLUTE AUTO 0.73 K/mm3 (0.16-1.47); MONOCYTES PERCENT AUTO 9 % (4-13); Mean Corpuscular HGB 20.9 pg (26.0-34.0); Mean Corpuscular HGB Conc 27.4 g/dL (31.5-36.5); Mean Corpuscular Volume 76 fL (80-100); Mean Platelet Volume 9.6 fL (9.1-12.4); NEUTROPHILS ABSOLUTE AUTO 4.67 K/mm3 (1.96-9.15); NEUTROPHILS PERCENT AUTO 56 % (41-73); NRBC ABSOLUTE 0.13 K/mm3 (0.00-0.02); NRBC Auto 1.6 /100 WBC (0.0-0.2); Platelet Count 371 K/mm3 (150-400); RDW Coefficient Variation 22.4 % (11.7-14.2); RDW Standard Deviation 59.3 fL (35.1-46.3); Red Blood Cell Count 5.56 M/mm3 (3.80-5.20); White Blood Cell Count 8.28 K/mm3 (4.00-11.30)
[2020-11-29 13:09] LABS: Anion Gap 2 mmol/L (6-16); Blood Urea Nitrogen 9 mg/dL (8-24); CO2, Blood 34 mmol/L (21-32); Calcium, Blood 9.3 mg/dL (8.5-10.1); Chloride, Blood 99 mmol/L (98-108); Glomerular Filtration Rate >60 (60-); Glucose, Blood 312 mg/dL (70-99); Potassium, Blood 4.3 mmol/L (3.5-5.5); Sodium, Blood 135 mmol/L (136-145); Total Protein, Blood 6.8 g/dL (6.4-8.2)
[2020-11-29 13:10] LABS: Alanine Aminotransfer (ALT/SGP 13 U/L (12-78); Albumin, Blood 2.4 g/dL (3.4-5.0); Albumin/Globulin Ratio 0.5 (0.8-1.8); Alk Phos 84 U/L (50-136); Aspartate Aminotrans (AST/SGOT 12 U/L (12-37); Bilirubin, Total 0.3 mg/dL (0.1-1.0); Globulin, Blood 4.4 g/dL (2.2-4.0)
[2020-11-29 13:11] LABS: Acetaminophen, Random <2.0 ug/mL (10.0-30.0); Ethanol (Alcohol), Blood, Med <3 mg/dL; Salicylate 6.3 mg/dL (2.8-20.0)
[2020-11-29 13:52] LABS: Source, Urine Clean Catch
[2020-11-29 13:58] LABS: Appearance, Urine Clear (Clear); Bilirubin, Urine Neg (Neg); Blood, Urine Neg (Neg); Color, Urine Yellow (P-Yellow); Glucose Qualitative, Urine 2+ (Neg); Ketones, Urine Neg (Neg); Leukocyte Esterase, Urine 1+ (Neg); Nitrite, Urine Neg (Neg); Protein, Urine 1+ (Neg); Urobilinogen, Urine NORM (Normal)
[2020-11-29 14:06] LABS: Red Blood Cells, Urine 0-2 /hpf (0-2)
[2020-11-29 14:07] LABS: Bacteria Few /hpf; Squamous Epithelial Cells Few /hpf (Few); Transitional Epithelial Cells Few /hpf (0-Rare)
[2020-11-29 14:09] LABS: U Amphetamine Screen Not Detected; U Barbituate Screen Not Detected; U Benzodiazapine Screen Not Detected; U Buprenorphine Screen Not Detected; U Cannabinoids Screen Not Detected; U Cocaine Screen Not Detected; U Methadone Screen Not Detected; U Methamphetamine Screen Not Detected; U Opiates Screen Not Detected; U Oxycodone Screen Not Detected; U Phencyclidine Screen Not Detected; U Propoxyphene Screen Not Detected
[2020-11-29] MEDS ORDERED: INCRUSE ELPT 62.5MCG INH (14:33)
[2020-11-29] MEDS ORDERED: Ventolin/Prove6.7 GM INH (14:33)
[2020-11-29] MEDS ORDERED: DEPAKOTE ER500 M2 PO (14:33)
[2020-11-29] MEDS ORDERED: CARVEDILOL6.25 MG PO (14:34)
[2020-11-29] MEDS ORDERED: FLUP5 PO (14:34)
[2020-11-29] MEDS ORDERED: NEURONTIN PO (14:34)
[2020-11-29] MEDS ORDERED: ATOR40TA PO (14:34)
[2020-11-29] MEDS ORDERED: AMLODIPINE BESYL5 MG PO (14:34)
[2020-11-29] MEDS ORDERED: METFORMIN HCL1000 M7 PO (14:35)
[2020-11-29] MEDS ORDERED: LOSARTAN POTASS25 M2 PO (14:35)
[2020-11-29] MEDS ORDERED: PANTOPRAZOLE SO40 M2 PO (14:35)
[2020-11-29] MEDS ORDERED: NOVOLOG FL100 UNIT/3 SC (14:36)
[2020-11-29] MEDS ORDERED: LEVEMIR FL100 UNIT/2 SC (14:37)
[2020-11-29 16:39] LABS: SARS-Cov-2 (COVID-19) PCR, MMC NEGATIVE (NEGATIVE)
--- NOTE | 2020-11-29 18:27 | NUR ---
ADMIT PT ADMITTED AT 1730. PT ORIENTED TO SELF ONLY. RELUCTANT TO CARE. PT STATES "I JUST WANT TO SMOKE AND DRINK COFFEE" AND "LEAVE ME ALONE". PT SWATTED AT THIS RN WHEN ATTEMPTING TO TAKE HER BP. PT ARRIVED TO UNIT, WET FROM SWEAT AND COVERED IN ORANGE CREAM. PT PROMPTLY GIVEN A BED BATH, REQUIRING 3P ASSIST. PHOTO DOC TAKEN OF ESORIATED GROIN. PT BECAME ANGRY AFTER THIS AND ORDERED US TO LEAVE THE ROOM. PT REFUSED LAB AND REFUSED FOR HER BLOOD SUGAR TO BE TAKEN. PT INFORMED SHE CANNOT EAT DINNER UNTIL WE GET A BLOOD SUGAR. PT YELLED AGAIN AT THIS RN TO LEAVE. PT TO BE MOVED TO THE BACK WHEELER FOR FURTHER MONITORING.
--- NOTE | 2020-11-29 21:30 | NUR ---
IV REFUSED IV FLUSH/ABX
--- NOTE | 2020-11-30 01:40 | NUR ---
LOW O2 NOTICED UPON ROUNDING PATIENT HAD TAKEN OFF OXYGEN. ATTEMPTED TO GET SPO2 WITH VITALS MACHINE; REFUSED TO ALLOW ME TO CHECK. WITH LOTS OF ENCOURAGEMENT. STILL REFUSING TO REPLACE O2 CANNULA ON.
--- NOTE | 2020-11-30 02:20 | NUR ---
BEDSIDE REPORT BEDSIDE REPORT GIVEN TO TOÑA PHILLIPS, ICU. TRANSFER ASSISTANCE REQUIRED FROM MEDICAL BED TO ICU BED.
[2020-11-30 03:18] LABS: BASOPHILS ABSOLUTE AUTO 0.08 K/mm3 (0.00-0.23); BASOPHILS PERCENT AUTO 1 % (0-2); EOSINOPHILS ABSOLUTE AUTO 0.26 K/mm3 (0.00-0.68); EOSINOPHILS PERCENT AUTO 2 % (0-6); Hematocrit 40.4 % (33.0-51.0); IMMATURE GRAN ABSOLUTE AUTO 0.03 K/mm3 (0.00-0.10); IMMATURE GRAN PERCENT AUTO 0 % (0-1); LYMPHOCYTES ABSOLUTE AUTO 5.11 K/mm3 (0.84-5.20); LYMPHOCYTES PERCENT AUTO 46 % (21-46); MONOCYTES ABSOLUTE AUTO 0.68 K/mm3 (0.16-1.47); MONOCYTES PERCENT AUTO 6 % (4-13); Mean Corpuscular HGB 21.2 pg (26.0-34.0); Mean Corpuscular HGB Conc 27.2 g/dL (31.5-36.5); Mean Corpuscular Volume 78 fL (80-100); Mean Platelet Volume 10.3 fL (9.1-12.4); NEUTROPHILS ABSOLUTE AUTO 4.88 K/mm3 (1.96-9.15); NEUTROPHILS PERCENT AUTO 44 % (41-73); NRBC ABSOLUTE 0.12 K/mm3 (0.00-0.02); NRBC Auto 1.1 /100 WBC (0.0-0.2); Platelet Count 329 K/mm3 (150-400); RDW Coefficient Variation 22.3 % (11.7-14.2); RDW Standard Deviation 60.6 fL (35.1-46.3); White Blood Cell Count 11.04 K/mm3 (4.00-11.30)
[2020-11-30 03:52] LABS: Alanine Aminotransfer (ALT/SGP 10 U/L (12-78); Albumin, Blood 2.3 g/dL (3.4-5.0); Albumin/Globulin Ratio 0.6 (0.8-1.8); Alk Phos 74 U/L (50-136); Anion Gap 0 mmol/L (6-16); Aspartate Aminotrans (AST/SGOT 7 U/L (12-37); Bilirubin, Total 0.4 mg/dL (0.1-1.0); Blood Urea Nitrogen 10 mg/dL (8-24); Bun/Creatinine Ratio 16.2 (12.0-20.0); CO2, Blood 37 mmol/L (21-32); Chloride, Blood 99 mmol/L (98-108); Creatinine, Blood 0.62 mg/dL (0.40-1.00); Globulin, Blood 4.1 g/dL (2.2-4.0); Glomerular Filtration Rate >60 (60-); Glucose, Blood 259 mg/dL (70-99); Potassium, Blood 4.8 mmol/L (3.5-5.5); Sodium, Blood 136 mmol/L (136-145); Total Protein, Blood 6.4 g/dL (6.4-8.2)
--- NOTE | 2020-11-30 03:52 | NUR ---
ASSUMED PT CARE FROM ALAN PERSON AT 0215 PT TRANSFERRED TO ICU SECONDARY TO PT REFUSING TO WEAR OXYGEN WITH SPO2 70-80'S ON RA. PT IS ENCEPHALOPATHIC; THEREFORE, ORDERS WERE OBTAINED TO PLACE ON PRECEDEX GTT IN ORDER TO PROVIDE PT WITH OXYGEN. PT ARRIVED ON UNIT ALERT AND CURSING AT STAFF. RESISTANT TO CARES. VERY PARANOID AND THREATENING STAFF STATING IF WE TOUCH HER SHE WILL JORGE A THE [facility]OS[facility]. PT REFUSES TO ANSWER QUESTIONS TO PLACE AND TIME. VERY LABILE WITH MOOD. SHE IS ABLE TO TELL US WHO SHE IS AND WHEN SHE WAS BORN. PT HEARING VOICES. WHEN ASKED WHAT THE VOICES WERE SAYING SHE STATED THEY ARE TELLING HER THAT SHE IS A "WHORE AND A SLUT AND NEEDS TO GO GET FED". PT REFUSED BLOOD PRESSURE CUFF TO BE PLACED ON; THEREFORE, DR. MENESES CALLED WITH ORDERS FOR ATIVAN 1-2 IV Q4 PRN. 2MG ADMINISTERED PER ORDERS. BP CUFF PLACED WITH STABLE VITALS NOTED. PRECEDEX INITIATED AT 0.3MCG/KG/HR; HOWEVER, AFTER ADMINISTRATION OF ATIVAN, IT WAS TITRATED DOWN TO 0.2MCG/KG/HR. PT NOTED TO BE IN NSR WITH HR 80'S. AFEBRILE. 5L OF HIFLOW OXYGEN WITH SPO2 >90%; HOWEVER, ONCE PT FELL ASLEEP OXYGEN SATURATIONS DROPPED TO MID 80'S; THEREFORE, OXYGEN INCREASED TO 7L. RT TO ROOM TO ATTEMPT CPAP. WILL CONTINUE TO MONITOR UNTIL REPORT IS HANDED OFF TO ONCOMING RN. PT HAS MASSIVE EXCORIATION TO BILATERAL INNER LEGS, BUTTOCKS, AND LYN AREA FROM INCONTINENCE. SKIN CARES PROVIDED. BILATERAL GROIN SITES HAVE WHAT APPEARS TO BE OLD INGROWN HAIRS, BUT HAVE NOW FORMED INTO PUSTULES WITH YELLOW, PURULENT DRAINAGE; CLEANSED AREA, PATTED DRY, AND APPLIED ABD PADS TO CREVICES. CATHETER CARES PERFORMED; JACKSON IS PATENT AND DRAINING YELLOW URINE TO GRAVITY.
--- NOTE | 2020-11-30 08:55 | NUR ---
ASSUMED CARE OF PT, REPORT RCV'D FROM ALAN DING. PT ALERT TO SELF AND FOLLOWING COMMANDS. PT EASILY AGITATED BUT REDIRECTABLE. NO EVIDENCE OF AUDITORY OR VISUAL HALLUCINATIONS AT THIS TIME. PRECEDEX TURNED OFF AT 0650 AND PT QUIET AND TOLERATING BIPAP WELL. PT MEDICATED WITH ATIVAN PER EMAR WITH GOOD RESULTS. SATS IN LOW 90'S ON CPAP, PT PLACED ON 5-7 L HFNC WHEN BIPAP OFF. COARSE LUNG SOUNDS BILATERAL UPPER LOBES. WOUNDS TO BILATERAL GROIN/PANNUS. WOUNDS CLEANED WITH WOUND CLEANSER AND DRY ABD PADS PLACED. SKIN EXCORIATED D/T MOISTURE BILATERAL FRONT/BACK THIGHS. WILL REPORT TO DAYSFLFT NURSE.
--- NOTE | 2020-11-30 12:38 | NUR ---
PT CONTINUES ON CPAP WITH SATS IN THE MID 90'S. PRECEDEX REMAINS OFF. PT MEDICATED WIT 1 DOSE OF ATIVAN FOR AGITATION. PT RESTING COMFORTABLY. REPORT GIVEN TO ALAN RIVERA. PT TO BE TRANSFERRED TO PCU 8 WHEN BED AVAILABLE.
--- NOTE | 2020-11-30 15:24 | NUR ---
Provider Call PFF spoke to Dr. Shi in regards to patients living sitrinity health. Pt placed on contact precautions for possible scabies.
--- NOTE | 2020-11-30 16:30 | NUR ---
Report Given to ALAN Sanchez.
--- NOTE | 2020-11-30 19:35 | NUR ---
ROMIE WAS MEDICATED AROUND 1600 WITH ATIVAN FOR HER FRUSTRATION AND INABILITY TO TOLERATE BEING IN THE HOSPITAL. SHE HAD REMOVED ALL OF HER LINES AND CORDS AND SHE WAS ADAMANT THAT SHE WANTED HER DOCTOR. SHE WAS ABLE TO CALM DOWN AFTER GIVEN THE MEDICATION AND SOME SIPS OF DIET PEPSI. THE CPAP WAS REPLACED AND SHE SEEMED TO TOLERATE IT BETTER. AROUND 1730 PT WASN'T ABLE TO KEEP HER SATS UP >85%, RESPIRATORY THERAPY WAS CALLED TO CONSIDER PLACING BIPAP. PT STILL REMAINED SEDATE FROM MEDICATION PRIOR. BLOOD SUGAR WAS COVERED WITH 9 UNITS OF INSULIN WHICH SHE TOLERATED WITHOUT INCIDENT.
--- NOTE | 2020-11-30 20:30 | NUR ---
ASSUMPTION OF CARE REPORT RECEIVED FROM RAFAEL PHILLIPS. PT AWAKE WHEN ENTERED ROOM, REQUESTING SOMETHING TO DRINK FOR DRY MOUTH. CPAP ON, SPO2 96%. PT ORIENTED TO SELF ONLY, FOLLOWING SIMPLE COMMANDS. AFTER ASSESSING PT, SHE BECAME AGITATED REQUESTING A CIGARETTE AND TO GET OUT OF BED. UNABLE TO REORIENT PT TO BEING IN THE HOSPITAL, ATIVAN GIVEN PER EMAR. JACKSON PATENT AND DRAINING TO GRAVITY. PT TOLERATED SIPS OF WATER WITHOUT ISSUE.
[2020-12-01 05:17] LABS: Anion Gap 1 mmol/L (6-16); Blood Urea Nitrogen 13 mg/dL (8-24); Bun/Creatinine Ratio 25.3 (12.0-20.0); CO2, Blood 39 mmol/L (21-32); Calcium, Blood 9.4 mg/dL (8.5-10.1); Chloride, Blood 101 mmol/L (98-108); Creatinine, Blood 0.51 mg/dL (0.40-1.00); Glomerular Filtration Rate >60 (60-); Glucose, Blood 134 mg/dL (70-99); Potassium, Blood 4.5 mmol/L (3.5-5.5); Sodium, Blood 141 mmol/L (136-145)
--- NOTE | 2020-12-01 06:09 | NUR ---
SHIFT SUMMARY PT CONFUSED T/O SHIFT ATTEMPTING TO REMOVE CPAP MASK AND IV LINES, MEDICATED WITH PRN ATIVAN PER EMAR. SPO2 >92% WITH CPAP ON, SPO2 DROPS TO 85% WHEN MASK REMOVED. FREQUENTLY REQUESTING CIGARETTES THIS SHIFT, REMINDED THAT SHE IS IN THE HOSPITAL. ORIENTED TO SELF T/O SHIFT, ORIENTED TO PLACE ONCE THIS SHIFT. CURRENTLY SALINE LOCKED. WOUNDS CLEANED WITH WOUND BOILING HOUSE OILER AND NEW ABD PADS PLACED.
--- NOTE | 2020-12-01 09:36 | NUR ---
PT TRANSFER: PT CONTINUES TO PULL OXYGEN MASK/TUBING OFF FREQUENTLY, NOT TOLERATING BEING OFF OXYGEN, O2 SATS DROP QUICKLY TO MID 80s. PT CONTINUES TO REQUIRE PRN ATIVAN ADMINISTRATION. PT ABLE TO STATE NAME, , THAT SHE IS AT "THE HOSPITAL". PT TRANSFERED TO ICU, REPORT GIVEN TO LAAN HALL.
--- NOTE | 2020-12-01 10:35 | NUR ---
PT RECEIVED FROM ALAN BYRD. SETTLED IN AND CARE GIVEN. VITALS STABLE, O2 VIA NC AT 10L. RESTRAINTS PLACED FOR PATIENT SAFETY. REPORT GIVEN TO ALAN TRAYLOR.
[2020-12-01 13:03] LABS: pH Blood Arterial 7.34 (7.35-7.45)
[2020-12-01 13:04] LABS: PCO2 Arterial 78 mmHg (35-45)
--- NOTE | 2020-12-01 13:19 | NUR ---
1030 RECIEVED REPORT FROM RAFAEL PHILLIPS AND ASSUMED CARE. AFTER ASSESING CHART, IN TO SEE AND ASSESS PT. PT VSS NOTED. SATS 94 AND INC TO 97 ON 10L NC WITH SEDATION FROM PCU AT TIME OF TRANSFER. LUNGS ARE CLEAR AND DEC IN BASES WITH REGULAR RATE AT 20-22. + BOWEL TONES, AND SOFT ABD. JACKSON PATENT OF YELLOW URINE. 1-2+ EDEMA NOTED OF LOWER EXT. PT HAS ONLY ONE IV ACCESS IN RAC AND PATENT WITH IVPB AND THEN NS AT 100 X 500ML AND WILL FOLLOW. PT IS LIGHTLY SEDATE ON PRIOR ATIVAN AND VS REFLECT THE SAME. THERE IS NO CURRENT EVIDENCE OF SCABIES. WILL ADDRESS WITH DR COVINGTON DUE TO CURRENT PO STATUS AND MULTIPLE PO MEDS PO.
--- NOTE | 2020-12-01 13:27 | NUR ---
1130 PT IV SITE ASSESSES AND NEW ATTEMPTS MADE PER BUDDY PHILLIPS FOR NEW SITE. PT ANXIETY INCREASING AND NEW ORDER FOR PRECEDEX GTT OBTAINED. THEN OLD SITE NOTED TO BE LEAKING AFTER PRECEDEX GTT AND PICC ORDER OBTAINED. 1245 DR COVINGTON AND MARTINE IN TO SEE AND ACCESS PT STATUS. ABG THEN OBTAINED AND REPORTED [facility] BIPAP ORDER TO FOLLOW. 1330 PT DISPITE NO OTHER SEDATION REMAINS CALM FOR NOW WITH SATS AND VS NOTED. WILL FOLLOW PROGRESS.
[2020-12-01 17:45] LABS: International Normalized Ratio 1.08; Prothrombin Time Results 11.6 Sec (9.7-11.5)
--- NOTE | 2020-12-01 18:48 | NUR ---
1645 PROLONGED ATTEMPTS FOR ADIQUITE IV ACCESS. PT GENERALLY TOLERATED WELL W/O SEDATION BUT DID REQUIRE ADDITIONAL O2 SUPPORT OF 14L TO MAINTAIN SATS. PT HAD SOME EPISODES OF ANXIETY BUT ONLY FOR SHORT PERIODS AND THEN WOULD DOZE OFF AGAIN. PT TO BE MOVED OVER TO ICU-2.
--- NOTE | 2020-12-01 18:52 | NUR ---
PT DOWN TO CT FOR CTA AT 1715 WITH RT ON BIPAP AT 14/8 50%. PT OFF PRECEDEX FOR THIS TIME AND TOLERATED BEING FLAT DURING THIS TIME. RETURNED W/O INCIDENT. HEPARIN BOLUS AND GTT WITH OTHER MEDS STARTED. PRECEDEX GTT CONT. AND NS AT 100ML.
[2020-12-01 19:11] LABS: Base Excess Venous 15.4 mmol/L; Bicarbonate Venous 36.5 mmol/L (24.0-30.0); PCO2 Venous 74.8 mmHg (38-42); PO2 Venous 97.6 mmHg (38-42); pH Blood Venous 7.35 (7.34-7.37)
--- NOTE | 2020-12-01 19:19 | NUR ---
PT NOTED WITH LOW MINUTE AND TIDAL VOLUMES AND SEDATION DEC. NOTE.
--- NOTE | 2020-12-01 19:30 | NUR ---
SHIFT ASSESSMENT ASSUMED CARE OF PT @ 1900. REPORT RECEIVED FROM ALAN TRAYLOR. PT ON BIPAP c O2 SATS >90%. RT ADJUSTING BIPAP SETTINGS. PT LIGHTLY SEDATED, PRECEDEX INITIALLY @ 0.5MCG/KG/HR, DECREASED TO 0.3 MCG/KG/HR DURING REPORT. PT OPENS EYES AND MOANS TO STIMULI, NOT FOLLOWING COMMANDS. BL SOFT WRIST RESTRAINTS IN PLACE DUE TO PT PULLING OFF BIPAP FOR DAY NURSES. JACKSON CATH PATENT, DRAINING YELLOW/ ROMIE URINE. PEDAL PULSES CONFIRMED VIA DOPPLER. WILL CONTINUE TO MONITOR CLOSELY.
--- NOTE | 2020-12-01 23:04 | NUR ---
UPDATE SHORTLY AFTER 1999 PTS O2 SATS STARTED DECREASING, RT WAS NOTIFIED, PRECEDEX PLACED ON SB. FIO2 TITRATED TO 100% c O2 SATS SLOWLY INCREASING FROM 85% TO 90%. DR. LANDAVERDE NOTIFIED, NEW ORDERS FOR CPT AND SUCTION. PT RESPONDED WELL TO SUCTION/ CPT/ STIMULATION. PT ABLE TO COUGH, MINIMAL SECRETIONS WITH COUGH AND SUCTION. O2 SATS IMPROVED TO 93%, RT IN ROOM TITRATING FIO2. CURRENTLY BIPAP SETTINGS-22/8 @ 60% c O2 SATS >93%. WILL CONTINUE TO MONITOR CLOSELY.
[2020-12-02 05:04] LABS: Base Excess Venous 17.4 mmol/L; Bicarbonate Venous 38.9 mmol/L (24.0-30.0); PCO2 Venous 56.9 mmHg (38-42); PO2 Venous 66.1 mmHg (38-42); pH Blood Venous 7.47 (7.34-7.37)
[2020-12-02 05:06] LABS: BASOPHILS ABSOLUTE AUTO 0.02 K/mm3 (0.00-0.23); BASOPHILS PERCENT AUTO 0 % (0-2); EOSINOPHILS ABSOLUTE AUTO 0.01 K/mm3 (0.00-0.68); EOSINOPHILS PERCENT AUTO 0 % (0-6); Hematocrit 41.1 % (33.0-51.0); Hemoglobin 11.1 g/dL (11.5-16.0); IMMATURE GRAN ABSOLUTE AUTO 0.04 K/mm3 (0.00-0.10); IMMATURE GRAN PERCENT AUTO 0 % (0-1); LYMPHOCYTES ABSOLUTE AUTO 2.15 K/mm3 (0.84-5.20); LYMPHOCYTES PERCENT AUTO 23 % (21-46); MONOCYTES ABSOLUTE AUTO 0.42 K/mm3 (0.16-1.47); MONOCYTES PERCENT AUTO 5 % (4-13); Mean Corpuscular Volume 78 fL (80-100); Mean Platelet Volume 10.2 fL (9.1-12.4); NEUTROPHILS ABSOLUTE AUTO 6.79 K/mm3 (1.96-9.15); NEUTROPHILS PERCENT AUTO 72 % (41-73); NRBC ABSOLUTE 0.03 K/mm3 (0.00-0.02); NRBC Auto 0.3 /100 WBC (0.0-0.2); Platelet Count 260 K/mm3 (150-400); RDW Coefficient Variation 22.1 % (11.7-14.2); RDW Standard Deviation 60.5 fL (35.1-46.3); Red Blood Cell Count 5.29 M/mm3 (3.80-5.20); White Blood Cell Count 9.43 K/mm3 (4.00-11.30)
[2020-12-02 05:34] LABS: Alanine Aminotransfer (ALT/SGP 12 U/L (12-78); Albumin, Blood 2.3 g/dL (3.4-5.0); Albumin/Globulin Ratio 0.6 (0.8-1.8); Alk Phos 64 U/L (50-136); Anion Gap 1 mmol/L (6-16); Aspartate Aminotrans (AST/SGOT 13 U/L (12-37); Bilirubin, Total 0.3 mg/dL (0.1-1.0); Blood Urea Nitrogen 14 mg/dL (8-24); Bun/Creatinine Ratio 32.9 (12.0-20.0); CO2, Blood 38 mmol/L (21-32); Calcium, Blood 9.1 mg/dL (8.5-10.1); Chloride, Blood 101 mmol/L (98-108); Creatinine, Blood 0.43 mg/dL (0.40-1.00); Globulin, Blood 4.1 g/dL (2.2-4.0); Glomerular Filtration Rate >60 (60-); Glucose, Blood 154 mg/dL (70-99); Potassium, Blood 4.6 mmol/L (3.5-5.5); Sodium, Blood 140 mmol/L (136-145); Total Protein, Blood 6.4 g/dL (6.4-8.2)
--- NOTE | 2020-12-02 07:38 | NUR ---
SHIFT SUMMARY PT REMAINS ON BIPAP, SETTINGS CURRENTLY BEING ADJUSTED BY RT. PRECEDEX GTT INFUSING @ 0.2MCG DUE TO PT BECOMING ANXIOUS/ AGITATED. BL SOFT WRIST RESTRAINTS REMAIN IN PLACE DUE TO PT PULLING OFF BIPAP. PT NOT FOLLOWING COMMANDS, CONTINUES TO OCCASIONALLY MOAN WITH STIMULI. PTS BP INCREASING T/O THE MORNING. ONE DOSE OF HYDRALAZINE GIVEN. HTN CONTINUED, DR LANDAVERDE NOTIFIED. NEW ORDERS PLACED FOR DOBHOFF AND AMLODOPINE DURING SHIFT CHANGE. REPORT GIVEN TO ONCOMING NURSE.
--- NOTE | 2020-12-02 08:30 | NUR ---
ASSESSMENT- PT SEDATED WITH PRECEDEX AT 0.2, AWAKENS TO NAME, MOANS. PRECEDEX OFF. AWAKE, AGITATED NOW, ATTEMPT BEDSIDE SWALLOW, ABLE TO TAKE SIPS WATER WITHOUT PROBLEMS. REFUSED TO TAKE MEDS-PARANOID BEHAVIOR. YELLING CURSE WORDS. EXPLAINED PLAN OF CARE WITHOUT IMPROVEMENT. REPOSITIONED. DR. BAZAN AT BEDSIDE. BP IMPROVED WITHOUT MEDICATION. LUNGS COARSE, APICAL REGULAR, NSR. NO N/V. UO VIA JACKSON. SKIN REDDENED FOLDS-UNDER BREASTS AND PANNUS. RIGHT UPPER ARM MIDLINE CATH. NS 100 CC/HR, HEPARIN GTT AT 17 UNITS/KG/HR, PRECEDEX RESTARTED FOR AGITATION. CONTACT PRECAUTIONS FOR POSSIBLE SCABIES OR BEDBUGS. NOTHING VISUALIZED. PLANS FOR DR. ENRIQUE TO EVALUATE TODAY.
--- NOTE | 2020-12-02 09:10 | NUR ---
DR. LANDAVERDE HERE-UPDATED. PT SEDATED, QUIET, TOLERATING BIPAP.
--- NOTE | 2020-12-02 10:27 | NUR ---
DR. LANDAVERDE HERE-ASSESSED PT. DOBHOFF PLACED PER ORDER, XRAY VERIFIED AND DR. LANDAVERDE EVALUATED XRAY. PT TALKING, MUMBLING. EXPLAINED PLAN OF CARE. ANGRY, REASSURANCE GIVEN. PRECEDEX INCREASED TO 0.3 MCG/KG/HR. CHANGED TO HIGH FLOW NASAL CANNULA. PULLS AT TUBES, BILATERAL WRIST RESTRAINTS ON
--- NOTE | 2020-12-02 12:24 | NUR ---
AM CARE, BATH DONE. ASLEEP WHEN UNDISTURBED, AWAKENS EASILY, ANGRY, WILL NOT FOLLOW DIRECTIONS, YELLING. REPOSITIONED, SKIN CARE DONE. PERIAREA AND UNDER PANNUS REDDENED. REMAINS SINUS, BP STABLE. PO MEDS GIVEN VIA DOBHOFF TUBE WITHOUT PROBLEMS. PRECEDEX INCREASED TO 0.4 ON HIGH FLOW NASAL CANNULA.
--- NOTE | 2020-12-02 14:20 | NUR ---
HEPARIN D/C AT 1000, SCDS ON. PT SEDATED, RESPIRATIONS UNLABORED, DECREASED PRECEDEX TO 0.2 TUBE FEEDING STARTED VIA DOBHOFF. NO S/S SCABIES, DR. LANDAVERDE D/C CONTACT PRECAUTIONS.
--- NOTE | 2020-12-02 15:14 | NUR ---
DR. ENRIQUE HERE-UPDATED. DR. LANDAVERDE HERE-UPDATED, TUBE FEEDING STARTED-AFTER TUBE ADVANCED TO 63 CM (AFTER XRAY), DID NOT WANT REPEAT XRAY. SINUS, BP STABLE. CALM, OPENS EYES TO STIMULATION. REPORT GIVEN.
--- NOTE | 2020-12-02 15:30 | NUR ---
REPORT RECEIVED FROM NORMA PHILLIPS. PT APPEARS TO BE BE RESTING, PRESIDEX AT 0.2, WRIST RESTRAINTS IN PLACE, CURRENTLY ON BIPAP AND TOLERATING WELL. NO APPARENT NEEDS AT THIS TIME. WILL CONTINUE TO MONITOR.
--- NOTE | 2020-12-02 18:00 | NUR ---
HR NOTED TO HAVE DROPPED TO 53-59 BMP. PRESCEDEX GTT OFF. PT AWOKEN TO PHYSICAL STIMULI. HR RETURNED TO MID 70S. VSS. PT BEGAN PULLING OFF BIPAP AND PULLING AT LINES. WRIST RESTRAINS READJUSTED, TUBES AND LINES MOVED OUT OF REACH AND CONCEALED. PT CONTINUES TO PULL OFF BIPAP MASK. PT PLACED ON HIFLOW 02 @15L, SPO2 DID NOT RISE ABOVE 79%. PT YELLING AND PULLING AT RESTRAINTS AND LINES. PRESCEDEX RESTARTED AT 0.2 AND PT PLACED BACK ON BIPAP D/T NOT TOLERATING HIFLOW O2. PT RESTING QUIETLY BUT AROUSABLE TO PHYSICAL STIMULI ON PRESCEDEX GTT, TOLERATING BIPAP MASK, SPO2 RETURNED TO 89-91% ON PREVIOUS SETTINGS. CHARGE NURSE THEODORE NOTIFIED.
--- NOTE | 2020-12-02 19:00 | NUR ---
ASSUMED CARE ASSUMED CARE OF PATIENT. REMAINS ON BIPAP 31/01, BUR 16, FIO2 60%. RR 19. SEDATED WITH PROPOFOL AT 0.2MCG/KG/HR. ROUSES TO VERBAL STIMULI. AGITATED AND ANGRY WHEN AWAKE. ORIENTED TO SELF ONLY AT THIS TIME. BILATERAL SOFT WRIST RESTRAINTS IN PLACE TO PROTECT TUBES/LINES. MONITOR SHOWS SB-SR, RATE MID 50s TO 60s. BP STABLE. DOBHOFF WITH PIVOT 1.5 AT 20CC/HR (GOAL IS 60CC/HR) AND 30CC H20 Q4H. JACKSON PATENT AND DRAINING YELLOW URINE. PAS TO BLEs. SEE SHIFT ASSESSMENT FOR FULL ASSESSMENT.
--- NOTE | 2020-12-02 19:20 | NUR ---
REPORT GIVEN TO ALAN PARKER.
--- NOTE | 2020-12-02 20:18 | NUR ---
D/T MEDITECH DOWNTIME, VITAL SIGN MONITORING BETWEEN APROX 1730 AND 1930 NOT ABLE TO UPLOAD.
[2020-12-02 20:35] LABS: Base Excess Venous 18.5 mmol/L; Bicarbonate Venous 39.8 mmol/L (24.0-30.0); PCO2 Venous 62.6 mmHg (38-42); PO2 Venous 135 mmHg (38-42); pH Blood Venous 7.44 (7.34-7.37)
[2020-12-03 04:15] LABS: Base Excess Venous 19.1 mmol/L; Bicarbonate Venous 40.1 mmol/L (24.0-30.0); PCO2 Venous 63.3 mmHg (38-42); PO2 Venous 48.6 mmHg (38-42); pH Blood Venous 7.44 (7.34-7.37)
[2020-12-03 04:23] LABS: BASOPHILS ABSOLUTE AUTO 0.04 K/mm3 (0.00-0.23); BASOPHILS PERCENT AUTO 1 % (0-2); EOSINOPHILS ABSOLUTE AUTO 0.06 K/mm3 (0.00-0.68); EOSINOPHILS PERCENT AUTO 1 % (0-6); Hemoglobin 10.7 g/dL (11.5-16.0); IMMATURE GRAN ABSOLUTE AUTO 0.01 K/mm3 (0.00-0.10); IMMATURE GRAN PERCENT AUTO 0 % (0-1); LYMPHOCYTES ABSOLUTE AUTO 3.28 K/mm3 (0.84-5.20); LYMPHOCYTES PERCENT AUTO 42 % (21-46); MONOCYTES ABSOLUTE AUTO 0.52 K/mm3 (0.16-1.47); MONOCYTES PERCENT AUTO 7 % (4-13); Mean Corpuscular HGB 20.6 pg (26.0-34.0); Mean Corpuscular HGB Conc 26.8 g/dL (31.5-36.5); Mean Corpuscular Volume 77 fL (80-100); Mean Platelet Volume 10.2 fL (9.1-12.4); NEUTROPHILS ABSOLUTE AUTO 3.98 K/mm3 (1.96-9.15); NEUTROPHILS PERCENT AUTO 50 % (41-73); Platelet Count 252 K/mm3 (150-400); RDW Standard Deviation 59.2 fL (35.1-46.3); Red Blood Cell Count 5.19 M/mm3 (3.80-5.20); White Blood Cell Count 7.89 K/mm3 (4.00-11.30)
[2020-12-03 04:36] LABS: Anion Gap 0 mmol/L (6-16); Blood Urea Nitrogen 17 mg/dL (8-24); Bun/Creatinine Ratio 41.5 (12.0-20.0); CO2, Blood 40 mmol/L (21-32); Calcium, Blood 8.9 mg/dL (8.5-10.1); Chloride, Blood 100 mmol/L (98-108); Creatinine, Blood 0.41 mg/dL (0.40-1.00); Glomerular Filtration Rate >60 (60-); Glucose, Blood 200 mg/dL (70-99); Magnesium, Blood 1.8 mg/dL (1.6-2.4); Phosphorus, Blood 2.5 mg/dL (2.5-4.9); Potassium, Blood 3.9 mmol/L (3.5-5.5); Sodium, Blood 140 mmol/L (136-145)
--- NOTE | 2020-12-03 06:05 | NUR ---
SHIFT SUMMARY NO ACUTE CHANGES. PT REMAINED ON BIPAP 31/01, BUR 16 T/O NOC. ATTEMPTED SHORT BREAK ON HFNC, BUT SATS IMMEDIATELY DROPPED TO LOW 80s. FIO2 BETWEEN 60-75% DURING SHIFT- NOW AT 65%. PRECEDEX CONTINUES AT 0.2MCG/KG/HR. PT RESTS QUIETLY WHEN UNDISTURBED, BUT BECOMES AGITATED AND UNCOOPERATIVE WITH CARE WITH ANY STIMULATION. SPEECH IS SLIGHTLY SLURRED. ORIENTED TO SELF ONLY. PULLS OFF BIPAP MASK IF RESTRAINTS ARE LOOSENED/REMOVED. OCCASIONALLY ATTEMPTS TO HIT STAFF. BILATERAL SOFT WRIST RESTRAINTS IN PLACE. MONITOR SHOWS SB-SR, RATE 50s-60s. BP STABLE. AFEBRILE. DOBHOFF WITH PIVOT 1.5 NOW AT 45CC/HR (GOAL IS 60CC/HR). JACKSON PATENT AND DRAINING YELLOW URINE. WILL REPORT TO ONCOMING RN WHEN AVAILABLE.
--- NOTE | 2020-12-03 08:20 | NUR ---
ASSESSMENT- PT AWAKENS TO NAME, ABLE TO FOLLOW BRIEF DIRECTIONS BUT BECAME ANGRY WHEN UNABLE TO GIVE PT FOOD. PULLING AT LINES. EXPLAINED PLAN OF CARE. PELAEZ. BIPAP MASK TO MAINTAIN SATURATIONS, REMOVED FOR AM CARE AND TOLERATED HIGH FLOW NASAL CANNULA WITH ADEQUATE SATURATIONS FOR 15 MINUTES THEN BACK TO BIPAP FOR LOW SATURATIONS. LUNGS WITH RHONCHI THROUGHOUT, OCCASIONAL CONGESTED COUGH. NSR. BP STABLE. TUBE FEEDING VIA RIGHT NARE TUBE AT 45 CC/HR, TAPED SECURELY. UO VIA JACKSON. RIGHT UPPER ARM POWER GLIDE INTACT WITH NS TKO AND PRECEDEX GTT AT 0.2 FOR SEDATION. REPOSITIONED WITH TOTAL ASSISTANCE. BILATERAL WRIST RESTRAINTS-PULLS AT LINES. DR. BAZAN HERE-UPDATED.
--- NOTE | 2020-12-03 12:29 | NUR ---
PT ALTERNATES BETWEEN SLEEPING AND BEING ANGRY AND PULLING AT RESTRAINTS. EXPLAINED PLAN OF CARE, REASSURANCE GIVEN. BATH DONE. INITIALLY COOPERATIVE WITH CARES THEN BECAME ANGRY. NSR, LUNG SOUNDS UNCHANGED. BREAK TO HIGH FLOW OXYGEN AT 15 L/MIN FOR 15 MINUTES BEFORE SATURATIONS DECREASED TO 84% AND BACK TO BIPAP.
--- NOTE | 2020-12-03 16:17 | NUR ---
DR. LANDAVERDE HERE-UPDATED. TOLERATED HIGH FLOW FOR 45 MINUTES BEFORE BACK TO BIPAP FOR LOW SATURATIONS. BEHAVIOR IMPROVED-ABLE TO FOLLOW SOME DIRECTIONS FOR FEW MINUTES BUT THEN WILL BECOME ANGRY AND VERBALLY ABUSIVE. EXPLAINED PLAN OF CARE, REAASSURANCE GIVEN. PT'S MOM CALLED-UPDATED
--- NOTE | 2020-12-03 18:15 | NUR ---
TOLERATING BIPAP, ABLE TO DECREASE TO 65% WITH STABLE SATURATIONS. LINES INTACT. TOLERATING TUBE FEEDING. DENIES STOMACH ISSUES. REPOSITIONED. CONTINUE TO MONITOR
--- NOTE | 2020-12-03 19:43 | NUR ---
ASSUMPTION OF CARE REPORT RECEIVED FROM NORMA RN. PT ON BIPAP 04/04 80%, TOLERATING WELL. HR 53, SPO2 88%, SBP 120'S. PT ALERT TO SELF ONLY, AGITATED ABOUT NOT BEING ABLE TO DRINK ANYTHING. PRECEDEX INFUSING AT 0.3 MCG/KG/HR & NS TKO. JACKSON DRAINING YELLOW URINE TO GRAVITY. TF RUNNING AT GOAL RATE OF 60 ML/HR WITH Q2H 110 ML WATER FLUSHES. DOBHOFF TO RIGHT NARE.
[2020-12-04 04:52] LABS: Base Excess Venous 19.7 mmol/L; Bicarbonate Venous 40.6 mmol/L (24.0-30.0); PCO2 Venous 65.8 mmHg (38-42); PO2 Venous 51.1 mmHg (38-42); pH Blood Venous 7.43 (7.34-7.37)
[2020-12-04 04:59] LABS: BASOPHILS ABSOLUTE AUTO 0.03 K/mm3 (0.00-0.23); BASOPHILS PERCENT AUTO 0 % (0-2); EOSINOPHILS ABSOLUTE AUTO 0.09 K/mm3 (0.00-0.68); EOSINOPHILS PERCENT AUTO 1 % (0-6); Hematocrit 40.6 % (33.0-51.0); Hemoglobin 10.8 g/dL (11.5-16.0); IMMATURE GRAN ABSOLUTE AUTO 0.02 K/mm3 (0.00-0.10); IMMATURE GRAN PERCENT AUTO 0 % (0-1); LYMPHOCYTES ABSOLUTE AUTO 2.95 K/mm3 (0.84-5.20); LYMPHOCYTES PERCENT AUTO 34 % (21-46); MONOCYTES ABSOLUTE AUTO 0.55 K/mm3 (0.16-1.47); MONOCYTES PERCENT AUTO 6 % (4-13); Mean Corpuscular HGB 20.9 pg (26.0-34.0); Mean Corpuscular HGB Conc 26.6 g/dL (31.5-36.5); Mean Corpuscular Volume 79 fL (80-100); Mean Platelet Volume 9.9 fL (9.1-12.4); NEUTROPHILS ABSOLUTE AUTO 4.98 K/mm3 (1.96-9.15); NEUTROPHILS PERCENT AUTO 58 % (41-73); Platelet Count 216 K/mm3 (150-400); RDW Coefficient Variation 22.2 % (11.7-14.2); Red Blood Cell Count 5.17 M/mm3 (3.80-5.20); White Blood Cell Count 8.62 K/mm3 (4.00-11.30)
[2020-12-04 05:15] LABS: Anion Gap -2 mmol/L (6-16); Blood Urea Nitrogen 16 mg/dL (8-24); Bun/Creatinine Ratio 41.3 (12.0-20.0); CO2, Blood 42 mmol/L (21-32); Calcium, Blood 8.7 mg/dL (8.5-10.1); Chloride, Blood 99 mmol/L (98-108); Creatinine, Blood 0.39 mg/dL (0.40-1.00); Glomerular Filtration Rate >60 (60-); Glucose, Blood 241 mg/dL (70-99); Magnesium, Blood 1.9 mg/dL (1.6-2.4); Phosphorus, Blood 2.4 mg/dL (2.5-4.9); Potassium, Blood 3.9 mmol/L (3.5-5.5); Sodium, Blood 139 mmol/L (136-145)
--- NOTE | 2020-12-04 05:56 | NUR ---
SHIFT SUMMARY PT CURRENTLY RESTING IN BED, PRECEDEX INFUSING AT 0.3 MCG/KG/HR. PT SLEPT MAJORITY OF SHIFT, AGITATION WHEN WOKEN UP. THIS AM WHEN CHECKING CBG, PT BEGAN THRASHING IN BED YELLING "DON'T TOUCH ME" AND ASKING FOR FOOD. PRECEDEX WAS INCREASED FROM 0.2 TO 0.3 MCG. JACKSON DRAINING TO GRAVITY. BIPAP AT 16/10 65%. PT TOLERATING TF AT GOAL RATE OF 60 WITH 110 ML Q2H WATER FLUSHES.
--- NOTE | 2020-12-04 16:33 | NUR ---
SHIFT NOTE PT HAD REMAINED ON BIPAP T/O THE DAY. ORAL CARE PERFORMED WITH NOTED TO HAVE LARGE ORAL CASTS THAT WERE REMOVED WITH ORAL CARE TODAY. PT HAS BEEN DEMANDING TO LEAVE, THREATENING STAFF T/O THE DAY, AT THE END OF THE SHIFT PT BECAME MORE COOPERATIVE. BILAT SWR REMAIN IN PLACE, SKIN INTACT NO BREAKDOWN NOTED. PT HAS ATTEMPTED TO REMOVE BIPAP MASK T/O THE DAY. VSS. PT HAS REQUIRED INSULIN COVERAGE T/O THE DAY. PT OTHERWISE HAS BEEN RESTING WELL IN BED.
--- NOTE | 2020-12-04 16:46 | NUR ---
PT REMOVED SPO2 PROBE, WHEN REPLACED PT DEMANDED TO BE ALLOWED TO LEAVE STS "I HAVE RIGHTS, AND I WANT TO GO HOME" PT REMINDED THAT CURRENTLY SHE HAS A FEEDING TUBE AND BIPAP TO HELP HER BREATHE THAT GOING HOME IN HER CURRENT STATE COULD LEAD TO , SO SHE MUST REMAIN HERE. PT STS "LET ME GO HOME AND THEN!" PT BECOMES RUDE BEGINS MIMICKING STAFF, THREATENING STAFF, AND CURSING, THE CONVERSATION ENDED AT THIS POINT
--- NOTE | 2020-12-04 20:35 | NUR ---
ASSUMPTION OF CARE PT RESTING IN BED, WAKES UP TO REQUEST FOOD AND COFFEE GETS VERY AGITATED WHEN TOLD SHE IS UNABLE TO HAVE AT THIS TIME. BIPAP MASK REMOVED AND PLACED ON 10L HFNC. PT ALLOWED REPOSITIONING, HAIR TO BE BRUSHED, AND ORAL CARE, STATES SHE WILL NOT ALLOW ANYTHING MORE TO BE DONE UNTIL SHE RECEIVES FOOD. EVENING MEDICATIONS GIVEN VIA DOBHOFF. TF AT GOAL RATE OF 60 ML/HR WITH 110 ML Q2H WATER FLUSHES. JACKSON DRAINING TO GRAVITY. LUNGS CLEAR WITH DIMINISHED BASES. SBP ELEVATED DUE TO PT ATTEMPTING TO PULL ARMS OUT OF RESTRAINTS. BIPAP PLACED BACK ON PT AFTER 20 MINUTES DUE TO DECREASE IN SPO2 TO MID 80'S. BIPAP SETTINGS 14/10 55% SPO2 INCREASED TO 93%. PRECEDEX INFUSING AT 0.3 MCG/KG/HR. PT HAS BEEN ALERT TO SELF AND PLACE.
[2020-12-05 03:25] LABS: Base Excess Venous 18.4 mmol/L; Bicarbonate Venous 40.3 mmol/L (24.0-30.0); PCO2 Venous 51.5 mmHg (38-42); PO2 Venous 71.1 mmHg (38-42); pH Blood Venous 7.51 (7.34-7.37)
[2020-12-05 03:51] LABS: Magnesium, Blood 1.7 mg/dL (1.6-2.4)
[2020-12-05 03:52] LABS: Anion Gap 0 mmol/L (6-16); Blood Urea Nitrogen 15 mg/dL (8-24); CO2, Blood 39 mmol/L (21-32); Calcium, Blood 8.8 mg/dL (8.5-10.1); Chloride, Blood 99 mmol/L (98-108); Creatinine, Blood 0.36 mg/dL (0.40-1.00); Glomerular Filtration Rate >60 (60-); Glucose, Blood 209 mg/dL (70-99); Phosphorus, Blood 2.4 mg/dL (2.5-4.9); Potassium, Blood 3.8 mmol/L (3.5-5.5); Sodium, Blood 138 mmol/L (136-145)
--- NOTE | 2020-12-05 06:05 | NUR ---
SHIFT SUMMARY PT CONTINUES TO BE AGITATED MOST OF THE TIME WHEN AWAKE. PT PLACED ON HFNC WHILE ORAL CARE DONE, SPO2 MAINTAINS ABOVE 88% FOR ABOUT 15 MINUTES BEFORE DROPPING TO MID TO LOW 80'S AND BIPAP MASK REPLACED. PT ALERT TO SELF AND PLACE THIS SHIFT. PRECEDEX INFUSING AT 0.3 MCG/KG/HR. VSS, HR 50-60'S SR, SBP 130-140'S, SPO2>88% ON BIPAP 16/12 50%. WILL CONTINUE TO MONITOR UNTIL REPORT GIVEN TO ONCOMING NURSE.
--- NOTE | 2020-12-05 08:41 | NUR ---
AT 0730 PT WAS REMOVED FROM RESTRAINTS AND BIPAP AND PLACED ON NC AT 10L HIGH FLOW O2, PT TOLERATED WELL, PT WAS NOT ATTEMPTING TO REMOVE ANY LINES. AT 0830 PT WAS FOUND TO BE ATTEMPTING TO REMOVE DOBHOFF AND HAS REMOVED O2, SPO2 AT 83%. PT BECAME COMBATIVE SLAPPING AT STAFF. SOFT WRIST RESTRAINTS WERE REPLACED. PT SCREAMING OUT. ORDER PLACED FOR CONFIRMATION OF PLACEMENT OF DOBHOFF. FEEDING IS STOPPED AT THIS TIME AND MEDICATIONS ARE HELD UNTIL PLACEMENT CAN BE CONFIRMED
--- NOTE | 2020-12-05 13:15 | NUR ---
PT REMAINS IN SWB RESTRAINTS BUT WAS ABLE TO POSITION SELF SO THAT SHE WAS ABLE TO REMOVE DOBHOFF FROM RT NARE. DR MYERS IS NOTIFIED AND HE STS TO LEAVE DOBHOFF OUT AND CONTINUE TO PUREE DIET AND PO MEDS PT TOLERATES. PT REMAINS ON HIGH FLOW NASAL CANNULA AT 10L WHICH SHE IS TOLERATING WELL. PT IS PLEASANT AND COOPERATIVE
--- NOTE | 2020-12-05 18:13 | NUR ---
SHIFT NOTE PT WAS WEANED OFF BIPAP THIS AM, PT HAS MAINTAINED SPO2 >90% ON 10L HIGH FLOW NC T/O THE DAY. PT'S DIET WAS CHANGED TO PUREE WITH THIN LIQUIDS, SHORTLY AFTER SPEECH THERAPY EVALUATION PT REMOVED PER ANTONIO WHICH WAS LEFT OUT PER DR MYERS. PT HAS ATE VERY WELL, AND APPEARS TO BE TOLERATING PO INTAKE WELL. PT HAS BECAME PLEASANT AND COOPERATIVE IS NO LONGER SHOUTING AT, THREATENING OR CURSING AT STAFF. PT HAS REQUIRED INSULIN COVERAGE T/O THE DAY. PT IS ALERT, ANSWERS MOST QUESTIONS APPROPRIATELY, SHE WAS ALSO ABLE TO CALL FAMILY FROM ROOM PHONE WITHOUT ASSISTANCE THIS AFTERNOON. PRECEDEX DRIP REMAINS INFUSING AT 0.3 AT THIS TIME WHICH IS TOELRATED WELL. VSS. LS REMAIN COARSE, PT WITH PRODUCTIVE COUGH. PT REPOSITIONED NUMEROUS TIMES T/O THE DAY BUT WILL NOT ALLOW FOR PILLOWS TO BE IN PLACE FOR LONG BEFORE SHE REMOVES THEM. PT HAD A BED BATH THIS AM. NO BM THIS SHIFT. DR DE LEON WAS NOT IN TODAY BUT HE DID CALL INCREASE SEROQUEL DOSE TO 150MG AT BEDTIME.
--- NOTE | 2020-12-05 19:30 | NUR ---
ASSUMING PT CARE: PT AWAKENS WHEN STAFF ENTERS ROOM & IS CALM, COOPERATIVE, & APPROPRIATE W/ STAFF. PRECEDEX @ 0.3mcg/kg/hr. DENIES ANY HALLUCINATIONS, DOES NOT APPEAR TO BE RESPONDING TO ANY UNSEEN STIMULI. SPO2 >92% W/ HIGH FLOW NC @ 10L/min. DENIES ANY PAIN OR SOB. SEE SHIFT ASSESSMENT.
--- NOTE | 2020-12-06 06:47 | NUR ---
SHIFT SUMMARY: PT RESTED WELL LAST NIGHT. PRECEDEX WAS TITRATED DOWN T/O THE NIGHT D/T BRADYCARDIA & PT WAS RESTING WELL & BEHAVING APPROPRIATELY W/O NEED FOR SEDATION. PLACED ON BiPAP FOR PERSISTENT HYPOXIA WHILE ASLEEP, HOWEVER SATS DID IMPROVE AFTER CPT. PT REMAINED CALM & COOPERATIVE, WHEN PT DID BEGIN TO BECOME AGITATED, PT WAS GIVEN FIRM REDIRECTION AND RESPONDED VERY WELL. NO ACUTE NEG CHANGES. WILL CONTINUE MONITOR UNTIL REPORT OFF TO ONCOMING RN.
--- NOTE | 2020-12-06 07:30 | NUR ---
ASSUMED CARE: ENTERED ROOM AND FOUND NASAL CANNULA OUT WHILE PT WAS BLOWING HER NOSE. NOTED THAT O2 SAT WAS DROPPING TO 88%. INSTRUCTED PT TO PUT OXYGEN BACK ON DUE TO DROPPING SATURATION. SHE STATED THAT SHE WOULD PUT IT ON WHEN SHE WANTED TO. NIGHT RN CAME IN AND ASKED HOW PT WAS DOING AND PT STATED SHE WAS DEALING WITH A BLONDE DIZZY WHO WAS JEALOUS OF HER AND ALSO A DEVIL WORSHIPER. PT REPLACED NC AND IS CURRENTLY SATTING IN MID 90S. DR MYERS AT BEDSIDE
--- NOTE | 2020-12-06 09:24 | NUR ---
PT'S ATTITUDE CHANGES WITH EACH ENTRANCE INTO ROOM. PT WAS COOPERATIVE WITH BREAKFAST AND TOOK PILLS FOR STAFF. RN LEFT BEDSIDE AND PHYSICAL THERAPY ENTERED ROOM. PT TOLED THERAPIST TO "GET THE F--- AWAY FROM ME." SIMILAR SENTIMENT GIVEN TO DR MAYA WELL. WILL ATTEMPT TO TITRATE OF PRECEDEX ABLE
--- NOTE | 2020-12-06 18:18 | NUR ---
SHIFT SUMMARY: PT HAS BEEN ON 9L O2 ALL DAY AND HAS BEEN OFF PRECEDEX SINCE 1130 THIS AM. HAS BEEN COOPERATIVE THIS AFTERNOON BUT REFUSES BED BATH AND REPOSITIONING. ALLOWED US TO GIVE HER MEDS AND CHECK CBGS THOUGH. PLAN IS FOR CONTINUED TITRATION OF O2 TO GET TO BASELINE O2 WHICH WAS 2L. PCU STATUS.
[2020-12-07 03:24] LABS: BASOPHILS ABSOLUTE AUTO 0.07 K/mm3 (0.00-0.23); BASOPHILS PERCENT AUTO 1 % (0-2); EOSINOPHILS ABSOLUTE AUTO 0.19 K/mm3 (0.00-0.68); EOSINOPHILS PERCENT AUTO 2 % (0-6); Hemoglobin 11.3 g/dL (11.5-16.0); IMMATURE GRAN ABSOLUTE AUTO 0.03 K/mm3 (0.00-0.10); IMMATURE GRAN PERCENT AUTO 0 % (0-1); LYMPHOCYTES ABSOLUTE AUTO 3.49 K/mm3 (0.84-5.20); LYMPHOCYTES PERCENT AUTO 34 % (21-46); MONOCYTES ABSOLUTE AUTO 0.59 K/mm3 (0.16-1.47); MONOCYTES PERCENT AUTO 6 % (4-13); Mean Corpuscular HGB 20.6 pg (26.0-34.0); Mean Corpuscular HGB Conc 26.9 g/dL (31.5-36.5); Mean Corpuscular Volume 77 fL (80-100); NEUTROPHILS ABSOLUTE AUTO 5.85 K/mm3 (1.96-9.15); NEUTROPHILS PERCENT AUTO 57 % (41-73); Platelet Count 183 K/mm3 (150-400); RDW Coefficient Variation 22.5 % (11.7-14.2); RDW Standard Deviation 61.4 fL (35.1-46.3); Red Blood Cell Count 5.49 M/mm3 (3.80-5.20); White Blood Cell Count 10.22 K/mm3 (4.00-11.30)
[2020-12-07 03:26] LABS: Mean Platelet Volume 11.1 fL (9.1-12.4)
[2020-12-07 03:40] LABS: Albumin, Blood 2.4 g/dL (3.4-5.0); Anion Gap 1 mmol/L (6-16); Blood Urea Nitrogen 13 mg/dL (8-24); Bun/Creatinine Ratio 24.2 (12.0-20.0); CO2, Blood 42 mmol/L (21-32); Calcium, Blood 9.5 mg/dL (8.5-10.1); Chloride, Blood 92 mmol/L (98-108); Creatinine, Blood 0.54 mg/dL (0.40-1.00); Glomerular Filtration Rate >60 (60-); Glucose, Blood 143 mg/dL (70-99); Potassium, Blood 4.3 mmol/L (3.5-5.5); Sodium, Blood 135 mmol/L (136-145)
[2020-12-07 04:17] LABS: Phosphorus, Blood 5.6 mg/dL (2.5-4.9)
--- NOTE | 2020-12-07 06:37 | NUR ---
SHIFT SUMMARY PT A&OX3. SP02>90% ON 9L NC AND BIPAP WHILE SLEEPING, 60% FI02. JACKSON CATHTER DRAINING TO GRAVITY. PT SKIN EXCORIATED IN PANNIS, OOZING PUS LIKE SUBSTANCE IN AREAS. PT TOOK MEDS CRUSHED IN APPLESAUCE. PT FIGETY DURING NIGHT, PULLED OUT POWERGLIDE. STATED "I COULD FEEL IT DANGLE". NEW POWERGLIDE IN PLACE. CALL LIGHT IN REACH. WILL GIVE REPORT TO ONCOMING NURSE.
--- NOTE | 2020-12-07 11:29 | NUR ---
AM NOTE... ASSUMED CARE OF PT AT 0700, PT IS A&Ox3 WITH BASELINE SCHIZOPHRENIA. PT IS PLEASENT AND SO FAR COOPERATIVE WITH CARE. PT IS ON 9-11l HI FLOW NC WITH O2 SATS >90%, L/S COARSE T/O. PT IS IN SR IN THE 70'S. BP STABLE AT THIS TIME. BT PRESENT AND HYPOACTIVE, ABD IS SLIGHTLY FIRM AND NONTENDER TO PALP, PT HAS NOT HAD A CHARTED BM SINCE ADMIT ON 11/29. BOWEL CARE STARTED. PT IS ASKING TO GET OUT OF BED AND WALK AROUND, PT/OT CONSULT PLACED. WILL CONTINUE TO MONITOR.
--- NOTE | 2020-12-07 20:43 | NUR ---
PATIENT AWAKE WATCHING TV, A&O X3. BIOX DOWN TO 80% ON RA WHEN PATIENT REMOVED OXYGEN. MOIST COUGH WITH YELLOW SPUTUM. EXPLAINED TO PATIENT NEED FOR OXYGEN. 13L/NC REPLACED WITH BIOX UP TO 93%. PATIENT CONTINUES TO REFUSE BIPAP. PATIENT ASKING TO INCREASE HER DIET TO REGULAR TEXTURE, PLAN FOR REPEAT ST EVAL TOMORROW.
--- NOTE | 2020-12-08 02:05 | NUR ---
PATIENT SLEEPING BIOX DOWN TO 84% OXYGEN INCREASED TO 15L/ NC HUMIDIFIED. PATIENT AWAKENS EASILY VERBALIZED NOT FEELING SOB. BIOX 88% WHEN AWAKE. PATIENT ADAMANT THAT SHE IS NOT GOING TO WEAR THE BIPAP. PATIENT ABLE TO COUGH, PRODUCING THICK WHITE SPUTUM. BIOX CONTINUES 85% ON 15L/NC
--- NOTE | 2020-12-08 06:58 | NUR ---
SUMMARY PATIENT REFUSING BIPAP T/O NIGHT. PATIENT SLEEPING ON HER RIGHT SIDE THIS MORNING WITH BIOX 89-91% ON 15L/HIGH FLOW NC HUMIDIFIED. PATIENT HAVING LARGE AMT OF CLEAR YELLOW URINE T/O NIGHT. PASSING FLATUS BUT NO BM DURING THE NIGHT. PATIENT QUICK TO ANGER AT TIMES. PLAN TO HAVE DAY SHIFT SEE IF WE CAN ADVANCE HER DIET TO SOMETHING MORE SOLID.
--- NOTE | 2020-12-08 10:35 | NUR ---
AM NOTE... PT IS A&Ox3 WITH UNDERLYING MENTAL HEALTH ISSUES. PT'S VS STABLE AT THIS TIME, PT IS ON HI FLOW NC AT 15L WITH O2 SATS >90%. L/S COARSE T/O. BT PRESENT AND HYPOACTIVE,ABD IS SOFT AND NONTENDER TO PALP. PT'S JACKSON IS PATENT AND DRAINING TO GRAVITY. PT IS ASKING TO GET UP AND WALK AROUND THE ROOM AND GET UP IN A CHAIR. PT TOLD THAT PT/OT WOULD BE BY TO HELP WORK WITH HER TO SEE IF SHE IS SAFE TO START GETTING UP OUT OF BED. CALL LIGHT IN REACH WILL CONTINUE TO MONITOR.
--- NOTE | 2020-12-08 17:36 | NUR ---
SHIFT SUMMARY... NO ACUTE NEGATIVE CHANGES NOTED THIS SHIFT. PT'S O2 HAS BEEN TITRATED FROM 15L TO 6L HI FLOW NC WITH O2 SATS >90% SINCE THE PT HAS GOTTEN UP INTO THE RECLINER CHAIR THIS SHIFT. PT'S OTHER VS HAVE BEEN STABLE UNTIL 1644 WHEN HER BP WAS 75/46, PT WAS NOT SYMPTOMATIC WITH THIS BP. PT'S AFTERNOON CATAPRESS AND CARVIDOLOL WERE HELD. PT'S L/S HAVE GREATLY IMPROVED SINCE SHE HAS GOTTEN UP IN THE CHAIR. PT'S JACKSON IS PATENT AND DRAINING DARK YELLOW URINE TO GRAVITY. PT'S DIET WAS CHANGED FROM PUREE TO MECH SOFT. CALL LIGHT IN REACH WILL CONTINUE TO MONITOR UNTIL REPORT IS GIVEN TO ONCOMING RN.
--- NOTE | 2020-12-08 20:43 | NUR ---
PATIENT AWAKE SITTING UP IN CHAIR. VERBALIZED WANTING TO GO HOME. BIOX 93% ON 9L/NC MOIST COUGH CONTINUES WITH WHITE SPUTUM. PATIENT VERBALIZED THAT SHE IS HUNGRY, SNACK OF 1/2 SANDWICH, JELLO, AND MAGIC CUP GIVEN. PATIENT ANGEL WELL. PATIENT CONTINUES TO BE SUSPICIOUS OF STAFF AT TIMES, BUT AT THIS TIME FRIENDLY AND INTERACTIVE.
--- NOTE | 2020-12-09 00:45 | NUR ---
PATIENT LAYING IN BED BIOX DOWN TO 81% WHILE SLEEPING PATIENT ADAMANT ABOUT NOT WEARING BIOX. OXYGEN UP TO 13L/NC AND PATIENT ENCOURAGED TO LAY ON HER SIDE
--- NOTE | 2020-12-09 02:34 | NUR ---
PATIENT SLEEPING ON RIGHT SIDE WITH BED FLAT, BIOX 96% 11L/NC
--- NOTE | 2020-12-09 05:41 | NUR ---
PATIENT SLEEPING WITH OXYGEN OFF BIOX DOWN TO 61%, OXYGEN REPLACED AT 15L AND PATIENT REPOSITIONED TO HER LEFT SIDE WITH PILLOWS, AND UDN TX MASK PLACED WITH OXYGEN. PATIENT AWAKENS AND STARTS HITTING AT STAFF "JUST LET ME REST" WHEN EXPLAINED THAT HER OXYGEN IS IN THE 70'S PATIENT CONTINUES TO RIP OFF MASK, AND HIT AT STAFF OXYGEN HUMIDIFIER LEAKING REPLACED WITH 15L/OXY AND BED PLACED IN REVERSE TR[place]G BIOX 85% RT CALLED
--- NOTE | 2020-12-09 06:49 | NUR ---
SUMMARY WHEN AWAKE AND SITTING UP IN CHAIR PATIENT BIOX 91% ON 9L/NC, AFTER GOING TO BED PATIENT BIOX DOWN TO 80'S PATIENT CONTINUES TO ADAMANTLY REFUSE BIPAP OR ANY OTHER TYPE OF MASK WHILE SLEEPING. PATIENT NOW ON AIRVO 50L AND 100% WITH BIOX 90% PATIENT AWAKENS EASILY AND IS VERY ANGRY WHEN AWAKENED EVEN WHEN EXPLAINED THAT HER BIOX WAS DOWN TO 61% ON RA. PATIENTS BLOOD PRESSURE MEDICATIONS HELD DURING THE NIGHT DUE TO HYPOTENSION.
--- NOTE | 2020-12-09 07:30 | NUR ---
ASSUMED CARE REPORT FROM ROBINA PHILLIPS. PT RESTING IN BED. WAKES c VERBAL STIMULI. GARBLED SPEECH, DIFFICULT TO UNDERSTAND BUT ANSWERS QUESTIONS APPROPRIATELY. FOLLOWS SIMPLE COMMANDS. COOPERATIVE c CARE. A&OX 3. PT ON 15L VIA OXYMIZER. O2 SATS MID 80'S. LUNGS CLEAR ON RIGHT, CRACKLES ON LEFT. WET PRODUCTIVE COUGH. ABLE TO CLEAR SECRETIONS. BP STABLE. HR 80-90'S. JACKSON PATENT, DRAINING CLEAR YELLOW URINE TO GRAVITY. GOOD APPETITE. PLAN TO CONTINUE PT/OT TODAY. WILL CONTINUE TO MONITOR.
--- NOTE | 2020-12-09 17:30 | NUR ---
SHIFT SUMMARY/TRANSFER TO PCU. AWAITING TRANSFER TO PCU. PT A&OX 3. PLEASANT AND COOPERATIVE c CARE MOST OF SHIFT. OCCASIONALLY AWAKES FROM SLEEP IRRITABLE. O2 SATS DECREASE TO MID 80'S DURING SLEEP. PT REFUSES BIPAP. AIRVO 50L 100% FOR SLEEP. WHEN AWAKE 15L HIGH FLOW. O2 SATS IMPROVED WHEN PT UP TO CHAIR AND c AMBULATION. O2 SATS 96% WHEN PT WAS WALKING IN UNIT c PT. DIURESED THIS SHIFT. CONTINUES TO HAVE MOIST COUGH. OCCASIONAL RHONCHI IN LEFT LUNG. JACKSON PATENT, DRAINING CLEAR YELLOW URINE OUT TO GRAVITY. GOOD APPETITE. VSS. WILL CONTINUE TO MONITOR UNTIL TRANSFER TO PCU.
--- NOTE | 2020-12-09 19:47 | NUR ---
REPORT OBTAINED VIA PHONE FROM ALAN CLARK IN ICU AT 1758; PT TRANSFERRED TO UNIT AT 1848 VIA ICU BED ACCOMPANIED BY OXYGEN THERAPY, CARDIAC MONITORING, AND NO IV INFUSIONS WITH CLINICAL NURSE EDUARDO; PT TRANSFERRED TO BED ASSISTX2 AND TELEMETRY UNIT ASSIGNED; REPORT GIVEN AT BEDSIDE TO ALAN CAMERON
--- NOTE | 2020-12-10 05:02 | NUR ---
STARTED SHIFT WITH PATIENT SATING LOW 90'S ON 15L HFNC. PATIENT BEGAN TO DESAT WITH SLEEP SO PUT ON AIRVO WHICH PATIENT DID NOT TOLERATE. MACHINE KEPT SAYING OCCLUDED/ERROR AND RT COULD NOT FIND ISSUE TO FIX AFTER COUPLE HOURS OF TUBING AND MACHINE ADJUSTMENTS. FROM HERE WE TRIED A NON REBREATHER WHICH EVEN MAXED OUT PATIENT WAS ONLY SATING 82%. ADAMENTLY REFUSED ANY USE OF MASK SUCH CPAP OR BIPAP R/T CLAUSTERPHOBIA. WITH ALL OF THESE OPTIONS OFF THE TABLE, PATIENT ON 15LHFNC SATING 83-85% MAX. MD MADE AWARE OF PREDICAMENT. PATIENT IN NO ACUTE DISTRESS, SLEEPING SOUNDLY. VSS. MONITORING CONTINUES.
--- NOTE | 2020-12-10 05:13 | NUR ---
PATIENT ADMITTED TO FLOOR RIGHT BEFORE SHIFT CHANGE. FOUND TO BE A&OX4, FORGETFUL, WITH GENERALIZED WEAKNESS. PATIENT ADMITTED TO SOME AUDITORY HALLUCINATIONS BUT STATES IS IMPROVING WITH HER MEDICATION. DOES NOT KNOW HER LIMITS. VSS. HAD SOME ISSUES WITH KEEPING SATS UP OVERNIGHT, SEE PREVIOUS NOTE FOR DETAILS. NO ACUTE DISTRESS THROUGHOUT SHIFT EVEN WITH DESATS. NSR ON THE MONITOR. NO CP. +2BLE SWELLING AND ELEVATED ON PILLOWS. VERY THIRSTY ALL NIGHT AND 3300ML OUT OF JACKSON THROUGH SHIFT. MADE AWARE OF THIS. NO ACUTE CONCERNS AT THIS TIME. MONITORING CONTINUES UNTIL REPORT GIVEN TO DAYSHIFT RN.
--- NOTE | 2020-12-10 08:30 | NUR ---
PT REFUSING RESPIRATORY CARE. SATING 83-84% ON 15 L HIGH FLOW. PT NOT COOPERATIVE WITH CARE. REFUSING VITAL SIGNS TO BE TAKEN. REFUSING INSULING THIS AM FOR BLOOD SUGAR OF 261. REFUSING LABS. PT EDUCATED ON CARE AND CARE NARRATED TO PATIENT. PT NOT WILLING TO PARTICIPATE AND YELLING AT STAFF. CALL PLACED TO DR. COVINGTON.
--- NOTE | 2020-12-10 09:30 | NUR ---
PT HEARD YELLING FROM ROOM AT RN. PREVIOUSLY YELLING AT RESPIRATORY THERAPIST PROFANITIES AND CALLING NAMES. PROVIDER MET WITH PT WHO AGREES TO LIMITED MEDICAL TREATMENTS, REFUSES BLOOD WORK AT THIS TIME. SEVERAL MINUTES LATER YELLING FROM ROOM. NURSING ROAD MACHINERY INSPECTOR AND MYSELF CASUALTY INSURANCE CLAIM ADJUSTER TO ROOM. ROAD MACHINERY INSPECTOR DISCUSSES BOUNDARIES AND COMPLYING WITH CARE. PT STATES SHE WANTS TO LEAVE. SIGNS AMA PAPERWORK. A/A/OX4 AT TIME OF CONVERSATION. JACKSON CATH REMOVED, POWER GLIDE REMOVED AND PRESSURE DRESSING PLACED. ASSISTED PT TO GET DRESSED, PERSONAL BELONGINGS GIVEN. NURSING ROAD MACHINERY INSPECTOR NOTIFIED FAMILY AND FRIEND WHO REFUSE TO PICK PT UP. ESCORTED TO FRONT OF HOSPITAL. BUS PASS GIVEN BY SECURITY AND RIDE TO BUS STOP PROVIDED. PT STATES SHE IS GOING TO THE [facility] [address] COVINGTON NOTIFIED.
== END 2020-12-10 09:20 | disposition left against medical advice (07) | DRG 193 ==
LOC: ER 11:37 → ICUE 16:08 → ICUW 16:08 → MEDS 16:08 → ICUW 11-30 02:10 → PCU 11-30 13:15 → ICUW 12-01 09:35 → ICUE 12-01 17:00 → PCU 12-09 18:40
PROVIDERS: Emergency Medicine; Family Medicine; Internal Medicine Critical Care Medicine; Internal Medicine Pulmonary Disease; ADMIT Internal Medicine
PROC: 5A09457 Assistance with Respiratory Ventilation, 24-96 Consecutive Hours, Continuous Positive Airway Pressure (ICD-10-PCS; principal; 2020-11-29)
DX: J18.9 Pneumonia, unspecified organism (principal); J96.21 Acute and chronic respiratory failure with hypoxia; J96.22 Acute and chronic respiratory failure with hypercapnia; G92 Toxic encephalopathy; J44.0 Chronic obstructive pulmonary disease with (acute) lower respiratory infection; L03.115 Cellulitis of right lower limb; L03.116 Cellulitis of left lower limb; Z20.822 Contact with and (suspected) exposure to COVID-19; F17.210 Nicotine dependence, cigarettes, uncomplicated; I10 Essential (primary) hypertension; F25.9 Schizoaffective disorder, unspecified; E11.9 Type 2 diabetes mellitus without complications; Z88.0 Allergy status to penicillin; Z88.8 Allergy status to other drugs, medicaments and biological substances; J44.9 Chronic obstructive pulmonary disease, unspecified; E78.5 Hyperlipidemia, unspecified; Z79.899 Other long term (current) drug therapy; Z79.4 Long term (current) use of insulin; E66.01 Morbid (severe) obesity due to excess calories
CPT/HCPCS: 36415; 36600; 51702; 71045; 71260; 80048; 80053; 80069; 81001; 82140; 82803; 82947; 83605; 83690; 83735; 83880; 84100; 84145; 84484; 85025; 85610; 85730; 87040; 87086; 92526; 92610; 93306; 93971; 94640; 94660; 94667; 94668; 94762; 96365-59; 97110; 97116; 97161; 97166; 97530; 99285-25; A9270; C1751; G0480; J0360; J0456; J0692; J0696; J1644; J1650; J1940; J2060; J2920; J2930; J3370; J7030; J7040; J7050; Q9967; U0004

== ENCOUNTER 2020-12-11 04:13 | Inpatient (IN) | payer OTHER ==
[~2020-12-11] VITALS: Ht 160 cm; Wt 136.1 kg
[~2020-12-11 04:13] MED LIST changes: +AMLODIPINE BESYL5 MG PO; +CARVEDILOL6.25 MG PO; +DEPAKOTE ER500 M2 PO; +INCRUSE ELPT 62.5MCG INH; +LEVEMIR FL100 UNIT/2 SC; +LOSARTAN POTASS25 M2 PO; +METFORMIN HCL1000 M7 PO; +NEURONTIN PO; +NOVOLOG FL100 UNIT/3 SC; +PANTOPRAZOLE SO40 M2 PO; +Ventolin/Prove6.7 GM INH
[2020-12-11 05:11] LABS: Base Excess Venous 13.2 mmol/L; PCO2 Venous 38.2 mmHg (38-42); PO2 Venous 75.9 mmHg (38-42); pH Blood Venous 7.57 (7.34-7.37)
[2020-12-11 05:23] LABS: Hematocrit 40.8 % (33.0-51.0); Hemoglobin 11.2 g/dL (11.5-16.0); Mean Corpuscular HGB 20.9 pg (26.0-34.0); Mean Corpuscular HGB Conc 27.5 g/dL (31.5-36.5); Mean Corpuscular Volume 76 fL (80-100); Platelet Count 248 K/mm3 (150-400); RDW Coefficient Variation 23.5 % (11.7-14.2); RDW Standard Deviation 63.9 fL (35.1-46.3); Red Blood Cell Count 5.37 M/mm3 (3.80-5.20); White Blood Cell Count 11.18 K/mm3 (4.00-11.30)
[2020-12-11 05:37] LABS: Anion Gap 6 mmol/L (6-16); Blood Urea Nitrogen 12 mg/dL (8-24); Bun/Creatinine Ratio 27.7 (12.0-20.0); CO2, Blood 33 mmol/L (21-32); Calcium, Blood 9.4 mg/dL (8.5-10.1); Chloride, Blood 90 mmol/L (98-108); Creatinine, Blood 0.43 mg/dL (0.40-1.00); Glomerular Filtration Rate >60 (60-); Glucose, Blood 318 mg/dL (70-99); Potassium, Blood 4.4 mmol/L (3.5-5.5); Sodium, Blood 129 mmol/L (136-145); Troponin I <0.015 ng/mL (0.000-0.040)
[2020-12-11 05:43] LABS: BAND PERCENT MAN 2 % (0-8); BASOPHILS PERCENT MAN 0 % (0-2); EOSINOPHILS ABSOLUTE MAN 0.11 K/mm3 (0.00-0.68); EOSINOPHILS PERCENT MAN 1 % (0-6); LYMPHOCYTES ABSOLUTE MAN 2.12 K/mm3 (0.84-5.20); LYMPHOCYTES PERCENT MAN 19 % (21-46); MONOCYTES ABSOLUTE MAN 1.11 K/mm3 (0.16-1.47); MONOCYTES PERCENT MAN 10 % (4-13); NEUTROPHILS ABSOLUTE MAN 7.82 K/mm3 (1.96-9.15); SEG NEUTROPHILS PERCENT MAN 68 % (41-73); TOTAL CELLS COUNTED 100
[2020-12-11 06:29] LABS: Source, Urine Catheter
[2020-12-11 06:40] LABS: Appearance, Urine Clear (Clear); Bilirubin, Urine Neg (Neg); Blood, Urine Neg (Neg); Color, Urine Yellow (P-Yellow); Glucose Qualitative, Urine 4+ (Neg); Ketones, Urine Neg (Neg); Leukocyte Esterase, Urine Neg (Neg); Nitrite, Urine Neg (Neg); Protein, Urine Neg (Neg); Urobilinogen, Urine NORM (Normal)
--- NOTE | 2020-12-11 10:47 | NUR ---
PT ARRIVED TO PCU 3 VIA GURNEY FROM ED. REPORT FROM IKE PHILLIPS, PT IS A/OX3, ABLE TO STAND AND TX SELF TO BED, IS A BIT MANIPULATIVE, REFUSING TO LAY DOWN TO GET CLEANED UP. SHE IS SOILED. STATES HER BREATHING IS DOING OK, LUNGS ARE CLEAR BUT DIM GILA IN BASES, RESP EVEN AND UNLABORED AT THIS TIME, DENIES A COUGH, IS CURRENTLY ON 4 LITERS 02 VIA N/C, HRR, TELE IN PLACE RUNNING SR PER MONITOR, SEE SRIP, 3+EDEMA NOTED TO B/L LE, PIV SITE TO LEFT BREAST, S.L., BTX4, ABD LARGE SOFT NONTENDER, JACKSON CATH DRAINING YELLOW URINE, SKIN HAS A RASH, EXCORIATED LYN AREA, SHAUNA ROMERO, ORIENTED TO ROOM LAYOUT CALL LIGHT IN REACH.
--- NOTE | 2020-12-11 18:04 | NUR ---
PT HAS BEEN PRETTY CALM, INAPPROPRIATE IN SOME SPEECH, BUT CALM FOR THE MOST PART, ASKING FOR FREQ SNACKS, BLOOD SUGARS ARE OVER 400, WILL LIMIT, AND CALLED DR. MYERS, HE CHANGED INSULIN, CALL LIGHT IN REACH.
[2020-12-12 03:43] LABS: Hematocrit 40.1 % (33.0-51.0); Mean Corpuscular HGB Conc 27.4 g/dL (31.5-36.5); Mean Corpuscular Volume 77 fL (80-100); Platelet Count 298 K/mm3 (150-400); RDW Coefficient Variation 23.6 % (11.7-14.2); RDW Standard Deviation 64.1 fL (35.1-46.3); Red Blood Cell Count 5.24 M/mm3 (3.80-5.20); White Blood Cell Count 8.19 K/mm3 (4.00-11.30)
--- NOTE | 2020-12-12 03:53 | NUR ---
LOW O2 SATS PT CONTINUES TO HAVE O2 SATS DROP <85% ON 15L HI VERA NC HOWEVER PT REFUSING BIPAP, AIRVO, CPAP. RT WORKING CLOSELY W SITUATION.
[2020-12-12 04:00] LABS: Alanine Aminotransfer (ALT/SGP 14 U/L (12-78); Albumin, Blood 2.4 g/dL (3.4-5.0); Albumin/Globulin Ratio 0.6 (0.8-1.8); Alk Phos 58 U/L (50-136); Anion Gap 3 mmol/L (6-16); Aspartate Aminotrans (AST/SGOT 11 U/L (12-37); Bilirubin, Total 0.3 mg/dL (0.1-1.0); Blood Urea Nitrogen 14 mg/dL (8-24); Bun/Creatinine Ratio 28.3 (12.0-20.0); CO2, Blood 37 mmol/L (21-32); Calcium, Blood 9.3 mg/dL (8.5-10.1); Chloride, Blood 92 mmol/L (98-108); Globulin, Blood 4.2 g/dL (2.2-4.0); Glomerular Filtration Rate >60 (60-); Glucose, Blood 407 mg/dL (70-99); Potassium, Blood 4.6 mmol/L (3.5-5.5); Sodium, Blood 132 mmol/L (136-145); Total Protein, Blood 6.6 g/dL (6.4-8.2)
[2020-12-12 04:26] LABS: BAND PERCENT MAN 6 % (0-8); BASOPHILS PERCENT MAN 0 % (0-2); EOSINOPHILS PERCENT MAN 0 % (0-6); LYMPHOCYTES % ATYPICAL MANUAL 1 % (0-0); LYMPHOCYTES ABSOLUTE MAN 1.88 K/mm3 (0.84-5.20); LYMPHOCYTES PERCENT MAN 22 % (21-46); MONOCYTES ABSOLUTE MAN 0.16 K/mm3 (0.16-1.47); MONOCYTES PERCENT MAN 2 % (4-13); MYELOCYTE ABSOLUTE MAN 0.08 K/mm3 (0.00-0.00); MYELOCYTE PERCENT MAN 1 % (0-0); NEUTROPHILS ABSOLUTE MAN 6.06 K/mm3 (1.96-9.15); SEG NEUTROPHILS PERCENT MAN 68 % (41-73); TOTAL CELLS COUNTED 100
--- NOTE | 2020-12-12 05:34 | NUR ---
RABIES INSPECTOR SUMMARY PT IS AXO X 2-3 BUT HAS SCATTERED THOUGHT PROCESS AND IS VERY PARANOID. PT REQUIRING 15L HI VERA NC TO MAINTAIN O2 SATS >87% HOWEVER WOULD DROP <85% AND REFUSED TO USE BIPAP OR AIRVO. PT WOULD TAKE O2 OFF AND DESAT INTO THE 60'S BUT WOULD RECOVER ONCE O2 PLACED BACK INTO HER NOSE. RT ATTEMPTED MULTIPLE TIMES TO GET PT TO USE ALTERNATIVE O2 DELIVERY WHICH PT REFUSED. PT YELLING THROUGHOUT THE SHIFT FOR SNACKS AND SODA/COFFEE, PT EDUCATED ON HER BLOOD SUGAR BEING ELEVATEED AND RISKS ASSOCIATED WITH THAT WHICH SHE WAS UNINTERESTED. CBG'S >400, PROVIDER NOTIFIED AND SCHEDULED INSULIN GIVEN PER EMAR. TELE SHOWING NSR IN THE 80'S THIS SHIFT. WILL REPORT TO ONCOMING RN.
--- NOTE | 2020-12-12 08:18 | NUR ---
pt sitting up on the side of the bed ate 100% of breakfast, filling out her menu, is refusing to answer how she is doing, states she needs to finish menu, did allow v.s. lungs are dim t/o as far as darlyn auscultate, as she wouldn't take deep breaths, is currently on 15 liters 02 via high flow cannula, no cough noted, hrr, tele in place running sr to st per monitor, see strip, 3+edema noted to b/l le, skin is very rashy, christopher in kali area around to right buttocks, weak, is able to move herself in bed, and up to bsc, iv site is in left breast, would not allow to be changed durring the night, vanessa, call light in reach.
--- NOTE | 2020-12-12 18:50 | NUR ---
pt yelling at staff, threatening harm to staff, facilities supervisor notified, she has had an uneventful day until now, sat up in a chair for a while, 02 turned to 14 liters, call light in reach.
--- NOTE | 2020-12-12 22:34 | NUR ---
TELE NOTICE THIS RN NOTIFIED OF PT'S HR DECREASING INTO 40'S.
--- NOTE | 2020-12-12 23:33 | NUR ---
THIS RN CALLS DR BERGER, NOTIFIES OF PT'S CBG AND MEDICATED PER ORDERS WITH INSULIN. DR BERGER AGREEABLE WITH INSULING DOSES GIVEN PER ORDERS. NO FURTHER ORDERS FOR INSULIN AT THIS TIME.
--- NOTE | 2020-12-13 01:25 | NUR ---
IV STATUS THIS RN DC IV IN PT'S L BREAST DUE TO BRUISING AND TENDERNESS WITH NS FLUSH, PT INITIALLY REFUSED THIS RN TO DC IV, THIS RN DC REASONS FOR WANTING TO DC IV AND DESIRE TO OBTAIN A NEW POINT OF ACCESS FOR IV MEDICATION. PT ALLOWED THIS RN TO DC IV, AGREED TO NEW IV INSERTION. THIS RN AT BEDSIDE FOR INSERTION, PT DELAYS TO EAT 1/2 SANDWICH REQUESTED. THIS RN RETURNS FOLLOWING PT FINISHING FOOD. PT DEMANDS MORE COFFEE. THIS RN ASKS IF IV ACCESS MAY BE OBTAINED. PT REFUSES, STATES SHE DOES NOT WANT THE ORDERED MEDICATION. THIS RN EXPLAINS REASONS FOR NEEDING THE MEDICATION AND IV ACCESS. PT REFUSES, BECOMES AGITATED AND RAISES VOICE. THIS RN EXPLAINS TO PT THAT HER WISHES ARE RESPECTED. UNABLE TO OBTAIN IV ACCESS AT THIS TIME DUE TO PT REFUSAL.
--- NOTE | 2020-12-13 03:32 | NUR ---
UPDATE AFTER PT REFUSES CPAP WHEN SATS DROP TO LOW 80'S, THIS RN TO BEDSIDE TO DISCUSS CPAP WITH PT. PT IS WILLING TO TRY CPAP AT THIS TIME. DIANE AVERY CALLED FOR CPAP.
--- NOTE | 2020-12-13 06:18 | NUR ---
SHIFT SUMMARY PT AGITATED T/O SHIFT, LABILE MOOD. COOPERATIVE AND PRESENT AT TIMES, PERIODS OF PT RESPONDING TO INTERNAL STIMULI, YELLING AND THREATENING STAFF, AND HAVING SENSORY DISTURBANCES SUCH SENSATIONS IN FACE. PT DESATS TO LOW 80'S WHILE SLEEPING, PT INITIALLY REFUSED CPAP, AFTER ENCOURAGEMENT FROM THIS RN AND RT DUE TO PT LOW SATS, PT AGREEABLE TO BE PLACED ON AIRVO INSTEAD OF HI FLOW CANNULA AT 15 L. SATS BACK UP TO LOW 90'S. THIS RN DC IV SITE IN L BREAST DUE TO PAIN AND BRUISING AT SITE, PT REFUSED TO ALLOW THIS RN TO INSERT NEW IV. IV STEROID DOSE HELD DUE TO PT REFUSAL AN NO ACCESS. PT DIAPHORETIC DURING EPISODE OF LOWER SATS. CONSTANTLY REQUESTED COFFEE T/O NIGHT AND SNACKS. THIS RN GAVE PT X1 SUGAR FREE JELLO AND X1 HALF SANDWICH. THIS RN EXPLAINED IMPORTANCE OF AVOIDING OVER SNACKING WITH HIGH CBG. SALINE LOCKED. JACKSON DRAINING CLEAR YELLOW URINE.
--- NOTE | 2020-12-13 15:08 | NUR ---
PT HAS BEEN ON AIRVO HIGH FLOW OXYGEN ALL SHIFT WITH OXYGEN SATURATIONS GENERALLY AT 95% OR ABOVE. UNIT RESPIRATORY THERAPIST (RT) CONTACTED AND TURNED OXYGEN FLOW DOWN FROM 70% TO 40% AND 40L 02/MIN. PT CONTINUED WITH GOOD SATURATION. OXYGEN FLOW TURNED DOWN TO 30-35% AND SATURATION REMAINED STABLE. AROUND 1400, SP02 DOWN TO 87% W/ FLOW SET AT 32%, PT WAS RESTING IN BED WITH EYES CLOSED AT THIS TIME AND CHIN WAS ANGLED TOWARD CHEST APPEARING TO RESTICT AIRWAY SOMEWHAT. PT WAS REPOSITIONED AT THIS TIME, PAINTER SHIPYARD AND FORMING ROLL OPERATOR HEAVY DUTY BOOSTED PT UP IN BED AND PLACED IN SEMI-NIEVES'S; SP02 THEN CAME UP TO 91% ALMOST IMMEDIATELY. PT BECAME ALERT WHEN NAME WAS SPOKEN AND WAS COMPLETELY ALERT FOR REPOSITONING; SHE DENIED INCREASED SOB.
--- NOTE | 2020-12-13 15:28 | NUR ---
PT REPORTED HER HEAD FEELS ITCHY. PT'S HAIR WAS CLOSELY ASSESSED AND LICE EGGS FOUND ON THE HAIR SHAFTS. CALL PLACED TO DR. MYERS, VOICEMAIL FULL. PT PLACED IN ISOLATION.
--- NOTE | 2020-12-13 16:41 | NUR ---
DR. MYERS NOTIFIED OF ELEVATED CBG AND LICE. RID ORDERED. WILL CONTINUE TO MONITOR CBG.
--- NOTE | 2020-12-13 18:34 | NUR ---
OFFERED TO APPLY ORDERED RID FOR LICE, PT REFUSED AT THIS TIME REQUESTING SNACKS. ACCEPTING SUGAR FREE JELL-O. ALSO 02 CHANGED TO NASAL CANNULA, ON 12L AT THIS TIME, SP02 APPEARED TO DROP TO 76, HOWEVER PT WAS MOVING HAND/MASSAGING BREASTS AT THIS TIME, POSSIBLY DISRUPTING THE READING, SP02 WENT BACK UP TO 93% WHEN PT BRIEFLY STOPPED SELF-MASSAGE. NO APPARENT DYSPNEA. REMAINED ON NASAL CANNULA
--- NOTE | 2020-12-13 19:49 | NUR ---
SHIFT SUMMARY: PT ALERT AND ORIENTED WITH LABILE MOOD AND AFFECT THROUGHOUT SHIFT AND INTERMITTENT COMPLIANCE/NONCOMPLIANCE WITH RECOMMENDED TX'S. LOUSE EGGS VISUALIZED IN PT'S HAIR AFTER PT C/O SCALP ITCHING. DR NOTIFIED AND ORDERED RID WHICH PT REFUSED WHEN OFFERED. CBG'S HAVE CONTINUED TO BE ELEVATED AND HUMALOG DOSE INCREASED TO 10 MORE UNITS AC MEALS. PT ACCEPTED ALL INSULIN AND ACCEPTED SCHEDULED PO MEDS TODAY. REQUESTING SNACKS VERY FREQUENTLY AND GIVEN SUGAR FREE OPTIONS. NOTIFIED ABOUT CONTINUED ELEVATED CBG'S AND DID NOT ORDER ANYTHING FURTHER. AFTER DISCOVERY OF LICE, PT PLACED ON CONTACT PRECAUTIONS AND THEN VERBALIZED A CONCERN OVER POSSIBLY "HAVING CRABS OR LICE IN PUBIC HAIR". TWO NURSES ASSSESSED GROIN AREA AND ONLY NOTED REDNESS/YEASTY RASH WHICH IS ALREADY BEING TREATED WELL ONE SMALL LESION ON L INNER LABIA. 2 MD HOLD PLACED TODAY. TELEMETRY REMOVED AND IV MEDS DISCONTINUED D/T REFUSAL OF IV. AIRVO REMOVED BY RT AND REPLACED WITH NASAL CANNULA AT 12L, PT TOLERATING WELL AT END OF SHIFT REPORT WITH SP02 97% ON 12L
--- NOTE | 2020-12-13 19:58 | NUR ---
SHIFT SUMMARY PT HAS BEEN PLEASANT AND COOPERATIVE MOST OF THE DAY. SHE WAS PLACED ON A 2 MD HOLD SINCE SHE APPEARS UNABLE TO CARE FOR HERSELF AT BASELINE. PT HAS BEEN TITRATED DOWN ON OXYGEN THIS SHIFT. SHE REMAINS ON 12L O2 VIA HIGH FLOW NC AT THIS TIME. PT APPEARS TO BE TOLERATING WELL. RR AND EFFORT EVEN AND UNLABORED ALTHOUGH LUNG SOUNDS HAVE BEEN DIMINISHED T/O THE DAY. PT HAS REPORTED SOME PAIN, MANAGED WITH TYLENOL. PT IS A 1 PERSON ASSIST. BLOOD GLUCOSE LEVELS REMAIN ELEVATED, PT LIKES TO SNACK. PT HAS BEEN OFFERED LOW CARB SNACKS AND SUGAR FREE FOODS. PT HAS ALSO BEEN EDUCATED ABOUT DIET AND REDUCING SNACKS. PT WAS ALSO EDUCATED THAT ELEVATED BLOOD GLUCOSE CAN CAUSE INCREASED THIRST. PT APPEARS TO LISTEN TO EDUCATION BUT NEEDS FREQUENT REINFORCEMENT. PT REPORTED ITCHING ON HER HEAD AND FELT LIKE A SPIDER WAS CRAWLING IN HER HAIR. HAIR WAS EXAMINED AND LICE EGGS FOUND. PT DECLINED LICE TREATMENT THIS AFTERNOON. VSS.
--- NOTE | 2020-12-14 01:04 | NUR ---
UPDATE PT SATS 90-91% ON 15 L OF HUMIDIFIED O2 VIA NC, RESTING PEACEFULLY AT THIS TIME.
--- NOTE | 2020-12-14 08:04 | NUR ---
SHIFT SUMMARY PT ALERT AND FRIENDLY TO THIS RN AT START OF SHIFT. HAD PERIODS OF DELUSIONS AND PARANOIA THROUGHOUT SHIFT AT RANDOM OUTBURSTS. PT FREQUENTLY TALKS ABOUT OTHER'S DYING OR THE ILL-FATES COMING TO OTHERS. PT POINTS IN ROOM AND TALKS ABOUT PEOPLE, WHEN ASKED WHO SHE IS TALKING ABOUT, PROVIDES NO FURTHER CLARIFICATION. PLAN WITH PT TO SHOWER AND ADMIN LICE TREATMENT, PT AGREEABLE. UNABLE TO COMPLETE PRIOR TO 2300. PT STATED SHE WANTED TO WAIT UNTIL AM. PT ATTEMPTED TO REFUSE LONG ACTING INSULIN, THIS RN DISCUSSES RISKS OF DOING SO WITH PT AND NEED TO CONTROL BLOOD SUGARS. PT AGREED TO TAKING ALL MEDS. PT HAD CONTINUED EXCELLENT OUTPUT OF URINE FROM INDWELLING JACKSON CATHETER. PT DRINKS SEVERAL COFFEES (DECAF) W/SPLENDA ONLY, AND BRICENO T/O MOST OF SHIFT. GIVEN A FEW SNACKS BY THIS RN AND AID. PT HAD A FEW PERIODS OF APNEA WITH DESAT TO MID TO LOW 80'S THAT QUICKLY RESOLVED WITH PT AWAKENED AND ENCOURAGED TO TAKE SOME DEEP BREATHS. EARLY IN AM PT DESATTED AND APPEARED SOMNOLENT, AWOKEN WITH SHAKE TO SHOULDER. AFTER CONTINUED PERIODS OF APNEA AND DESAT INTO LOW 80'S ON HIGH FLOW NC, RT MARIA E CALLED TO BEDSIDE FOR CPAP/BIPAP. PT PLACED ON BIPAP, CONTINUED TO SAT LOWER IN MID-HIGH 80'S ON 100% O2 ON BIPAP, RR CONTINUED 20-22 ON BIPAP. O2 ON BIPAP TITRATED DOWN TO 85% D/T PT HX COPD AND CONCERN FOR CO2 INCREASE CAUSING SOMNOLENCE WITH SATS MAINTAINING IN HIGH 80'S. CBG 200'S. PT HAS NO IV ACCESS AT THIS TIME.
[2020-12-14 11:52] LABS: Hematocrit 41.6 % (33.0-51.0); Hemoglobin 11.3 g/dL (11.5-16.0); Mean Corpuscular HGB 21.3 pg (26.0-34.0); Mean Corpuscular HGB Conc 27.2 g/dL (31.5-36.5); Mean Corpuscular Volume 79 fL (80-100); Mean Platelet Volume 10.2 fL (9.1-12.4); Platelet Count 406 K/mm3 (150-400); RDW Standard Deviation 63.7 fL (35.1-46.3); White Blood Cell Count 13.18 K/mm3 (4.00-11.30)
[2020-12-14 12:10] LABS: Anion Gap 3 mmol/L (6-16); Blood Urea Nitrogen 16 mg/dL (8-24); Bun/Creatinine Ratio 32.9 (12.0-20.0); CO2, Blood 37 mmol/L (21-32); Calcium, Blood 9.2 mg/dL (8.5-10.1); Chloride, Blood 91 mmol/L (98-108); Creatinine, Blood 0.49 mg/dL (0.40-1.00); Glomerular Filtration Rate >60 (60-); Glucose, Blood 300 mg/dL (70-99); Potassium, Blood 4.5 mmol/L (3.5-5.5); Sodium, Blood 131 mmol/L (136-145)
[2020-12-14 12:25] LABS: BAND PERCENT MAN 7 % (0-8); BASOPHILS PERCENT MAN 0 % (0-2); EOSINOPHILS ABSOLUTE MAN 0.13 K/mm3 (0.00-0.68); EOSINOPHILS PERCENT MAN 1 % (0-6); LYMPHOCYTES ABSOLUTE MAN 3.82 K/mm3 (0.84-5.20); LYMPHOCYTES PERCENT MAN 29 % (21-46); MONOCYTES ABSOLUTE MAN 0.65 K/mm3 (0.16-1.47); MONOCYTES PERCENT MAN 5 % (4-13); NEUTROPHILS ABSOLUTE MAN 8.56 K/mm3 (1.96-9.15); SEG NEUTROPHILS PERCENT MAN 58 % (41-73); TOTAL CELLS COUNTED 100
--- NOTE | 2020-12-14 19:57 | NUR ---
SHIFT SUMMARY PT ALERT, ORIENTED TO PERSON, PLACE AND TIME. PT CONFUSED, SPEECH IN NONSENSICAL AT TIMES. PT MAKES STATEMENTS "DO YOU FEEL LIKE I AM GOING TO HURT YOU" THEN LAUGHS AND SAYS "OH IM KIDDING, I JUST LIKE TO SEE REACTIONS. OTHER PT CALM AND COOPERATIVE WITH CARE DURING SHIFT. PT FREQUENTLY ASKING FOR SNACKS T/O SHIFT, EDUCATED PT ON BLOOD GLUCOSE AND FOOD CHOICES. 1630 CBG 413; NOTIFIED DR MYERS, NO NEW ORDERS, PLANS FOR INCREASED SEMGLEE TO START TONIGHT. PT ON BIPAP THIS AM, TRANSITIONED TO 15L HIGH FLOW NC, TITRATED T/O SHIFT TO 6L O2 VIA NC; PT EDUCATED ON DEEP BREATHING AND COUGHING, COUGHING UP LARGE AMOUNTS OF GREEN SPUTUM T/O SHIFT. PT DENIES PAIN, CHEST PAIN, NAUSE AND DIZZINESS T/O SHIFT. PT REICEIVING IV ANTIBIOTICS. PT RECEIVIED LICE TREATMENT; PT ASKED STAFF TO CUT HAIR, PT DIRECTED IN LENGHT. VSS. NO OTHER ACUTE CHANGES NOTED. REPORT GIVEN TO ONCOMING RN.
--- NOTE | 2020-12-15 06:17 | NUR ---
BIN PACKER SUMMARY PT REPORT BOTH AUDITORY AND VISUAL HALLUCINATIONS AT THE START OF THE SHIFT. PT'S 2100 CBG- 400 AND PROVIDER WAS NOTIFIED WHO SAID HER SCHEDULED HS INSULIN WOULD BE ENOUGH. PT MAINTAINED O2 SATS >90% FOR MOST OF THE NIGHT BUT DID HAVE DESATS INTO THE MID 80'S WHILE ASLEEP. PT PUT ON BIPAP FOR HALF OF THE NIGHNT UNTIL SHE AWOKE AND REFUSED TO WEAR IT. BPS AVERAGING 130/70'S. WILL REPORT TO ONCOMING RN.
--- NOTE | 2020-12-15 17:42 | NUR ---
SHIFT SUMMARY; ASSUMED CARE AT 0700, REPORT FROM ALAN BYRD. A/A/OX4. SITS AT SIDE OF BED MOST OF DAY. MULTIPLE REQUESTS FOR SNACKS AND DRINKS, COOPERATIVE WITH CARE. AMBULATES TO RESTROOM WITH STAND BY ASSIST AND WALKER. JACKSON IN PLACE DRAINING CLEAR YELLOW URINE. 3+ EDEMA TO BLE. ANTIFUNGAL POWDER TO SKIN FOLD AREAS. INSULIN COVERAGE PER EMAR. WILL CONTINUE TO MONITOR AND TREAT UNTIL CHANGE OF SHIFT.
--- NOTE | 2020-12-16 06:10 | NUR ---
INFORMATICS SPECIALIST SUMMARY PT WAS PLEASANT THIS SHIFT W NO EPISODES OF BEING RUDE OR AGGRESSIVE TO THE STAFF. BP'S REMAIN WNL AND STABLE. PT'S O2 REQUIREMENT WERE HIGHER THIS SHIFT REQUIRING 10L VIA HI VERA NC WHEN AWAKE BUT WOULD ONLY MAINTAIN O2 SATS >90% ON BIPAP W 80% FIO2 WHEN ASLEEP. PT SLEPT OFF AND ON THROUGHOUT THE SHIFT AWAKING REQUEST WATER WHICH WAS GIVING IN SMALL AMOUNTS AND SUPERVISED. PT INITIALLY REFUSED BIPAP HOWEVER AFTER THIS RN EXPLAINED THAT HER O2 SATS WERE LOW AND THAT THIS IS THE BEST COURSE OF TX SHE WAS WILLING. WILL REPORT TO ONCOMING TO RN.
[2020-12-16 10:37] LABS: BASOPHILS ABSOLUTE AUTO 0.04 K/mm3 (0.00-0.23); BASOPHILS PERCENT AUTO 0 % (0-2); EOSINOPHILS ABSOLUTE AUTO 0.13 K/mm3 (0.00-0.68); EOSINOPHILS PERCENT AUTO 1 % (0-6); Hematocrit 40.6 % (33.0-51.0); Hemoglobin 11.5 g/dL (11.5-16.0); IMMATURE GRAN ABSOLUTE AUTO 0.04 K/mm3 (0.00-0.10); IMMATURE GRAN PERCENT AUTO 0 % (0-1); LYMPHOCYTES ABSOLUTE AUTO 4.01 K/mm3 (0.84-5.20); LYMPHOCYTES PERCENT AUTO 40 % (21-46); MONOCYTES ABSOLUTE AUTO 0.92 K/mm3 (0.16-1.47); MONOCYTES PERCENT AUTO 9 % (4-13); Mean Corpuscular HGB 21.8 pg (26.0-34.0); Mean Corpuscular HGB Conc 28.3 g/dL (31.5-36.5); Mean Corpuscular Volume 77 fL (80-100); Mean Platelet Volume 9.9 fL (9.1-12.4); NEUTROPHILS ABSOLUTE AUTO 4.79 K/mm3 (1.96-9.15); NEUTROPHILS PERCENT AUTO 48 % (41-73); Platelet Count 399 K/mm3 (150-400); RDW Coefficient Variation 24.5 % (11.7-14.2); RDW Standard Deviation 64.8 fL (35.1-46.3); Red Blood Cell Count 5.28 M/mm3 (3.80-5.20); White Blood Cell Count 9.93 K/mm3 (4.00-11.30)
[2020-12-16 11:23] LABS: Anion Gap 2 mmol/L (6-16); Blood Urea Nitrogen 14 mg/dL (8-24); Bun/Creatinine Ratio 32.4 (12.0-20.0); CO2, Blood 37 mmol/L (21-32); Calcium, Blood 9.1 mg/dL (8.5-10.1); Chloride, Blood 94 mmol/L (98-108); Creatinine, Blood 0.43 mg/dL (0.40-1.00); Glomerular Filtration Rate >60 (60-); Glucose, Blood 275 mg/dL (70-99); Potassium, Blood 4.4 mmol/L (3.5-5.5); Sodium, Blood 133 mmol/L (136-145)
--- NOTE | 2020-12-16 18:14 | NUR ---
SHIFT SUMMARY PT HAS BEEN PLEASANT TODAY, SHE HAS BEEN COOPERATIVE WITH CARE. PT STRUGGLES TO UNDERSTAND THE RELATIONSHIP BETWEEN FOOD/DRINKS AND THE EFFECT ON HER BLOOD GLUCOSE. PT HAS BEEN EDUCATED MANY TIMES, AND ENCOURAGED TO SLOW DOWN ON EATING AND DRINKING. CBGS HAVE BEEN BETTER CONTROLLED TODAY THAN THEY HAVE IN THE PAST. PT HAS BEEN ENCOURAGED TO DRINK MORE WATER RATHER THAN COFFEE. PT SPENT TIME IN THE CHAIR TODAY AND IN BED WELL. PT HAS HAD SEVERAL BOWEL MOVEMENTS. VS STABLE AT THIS TIME.
--- NOTE | 2020-12-17 03:11 | NUR ---
PT TOLERATED BI-PAP AT NIGHT FOR A FEW HOURS. SHE THEN REMOVED THE BI-PAP MASK BECAUSE SHE COULDN'T TOLERATE IT. PT IS PRESENTLY SLEEPING, SATING ABOVE 90% ON 8LPM VIA NC.
[2020-12-17 04:47] LABS: Anion Gap 1 mmol/L (6-16); Blood Urea Nitrogen 13 mg/dL (8-24); Bun/Creatinine Ratio 31.2 (12.0-20.0); CO2, Blood 41 mmol/L (21-32); Calcium, Blood 8.9 mg/dL (8.5-10.1); Chloride, Blood 94 mmol/L (98-108); Creatinine, Blood 0.42 mg/dL (0.40-1.00); Glomerular Filtration Rate >60 (60-); Glucose, Blood 220 mg/dL (70-99); Sodium, Blood 136 mmol/L (136-145)
--- NOTE | 2020-12-17 09:22 | NUR ---
SNACKING PT IS CALLING EVERY 3-5 MINUTES ASKING FOR SNACKS AND COFFEE OR OTHER THINGS TO DRINK. IT HAS BEEN DIFFICULT TO GET HER BLOOD SUGARS UNDER CONTROL SO TODAY ALAN SCHMIDT PRESENTED A NEW IDEA TO HER. ALAN SCHMIDT EXPLAINED THAT WE TRY FOR 1 SNACK IN THE MORNING AND 1 BEFORE BED THEN ONLY 1 BETWEEN MEALS, THIS WOULD BE TRACKED ON THE BOARD FOR HER TO SEE WHAT SHE HAS CONSUMED. THEN SHE CAN HAVE ALL THE WATER SHE WANTS BUT BETWEEN MEALS THE GOAL WOULD BE TO HAVE ONLY 3 CUPS OF NON-WATER DRINKS SUCH COFFEE OR DIET PEPSI. ALSO RECORDED ON THE BOARD FOR HER TO VISUALIZE. SO FAR PT IS AGREEABLE BUT NEEDS TO BE REMINDED AND ENCOURAGED
--- NOTE | 2020-12-17 18:20 | NUR ---
SHIFT SUMMARY PT HAS BEEN COOPERATIVE WITH CARE TODAY. PT HAS BEEN WORKING WITH STAFF TO LIMIT SNACKS AND NON-WATER DRINKS TODAY, THIS HAS BEEN TRACKED ON THE BOARD TODAY AND THE PT HAS COOPERATED AND BEEN AGREEABLE, HER INTAKE HAS BEEN GREATLY DECREASED FROM THE PREVIOUS NIGHT. PT HAS BEEN IN THE CHAIR, DANGLING AT THE BEDSIDE AND RESTING IN BED ON AND OFF TODAY. PT HAS A CATHETER IN PLACE THAT IS DRAINING. PT WAS AGREEABLE TO A BED BATH TODAY. PT MET WITH SOME REPS FROM [facility] [place] WHO WERE COMPLETING A SCREENING TO SEE IF THEIR FACILITY COULD MET HER NEEDS UPON DISCHARGE. PT REPORTED THAT SHE DID NOT LIKE THEM AND SHE DOES NOT WANT TO LEAVE WITH THEM, SHE SAYS, "YANETH SHAW TOLD ME I HAVE PLACEMENT FOR THE AND I WANT TO GO THERE. I DON'T WANT PEOPLE JUST BARGING IN HERE." ALAN SCHMIDT TRIED TO EXPLAIN THIS IS PART OF FINDING HER PLACEMENT FOR DISCHARGE AND GETTING HER OUT OF HERE, PT RESPONDED "WELL I DON'T WANT TO BE A PART OF THIS PROCESS, I WANT WHAT IS SET IN [place]ONE." OTHER THAN THIS ENCOUNTER PT HAS BEEN PLEASANT AND COOPERATIVE WITH CARE TODAY. CBG CONTINUE TO BE ELEVATED, DR. COVINGTON WAS MADE AWARE AND ALAN SCHMIDT SUGGESTED CHANGING HER LONG ACTING DOSE, DR AGREED TO REASSESS IN THE AM.
--- NOTE | 2020-12-17 21:46 | NUR ---
PATIENT HAS HAD 1200ML SINCE 1900 THIS EVENING , 2 X ROAST BEEF SANDWICHES, 2 X SUGAR FREE JELLOS, PATIENT IS ASKING FOR MORE FOOD HER BLOOD SUGAR IS 343 CHECK AT HS, PATIENT IS ASKING TO GO AMA, BUT CURRENTLY IS ON A MEDICAL HOLD UNTIL THE DECEMBER 19, 2020, PAPER COPY IS IN THE CHART. PATIENT WAS EDUCATED ABOUT HER BLOOD SUGAR, AND HER CURRENT MEDICAL HOLD.
--- NOTE | 2020-12-18 00:09 | NUR ---
MIDNIGHT VITALS NOT OBTAINED, PROMOTING REST PATIENT IS SLEEPING, HALLUCINATIONS WITH PARANOID IDEATION EARILER, AGITATION TOWARDS STAFF WITH ORAL FIXATION WITH FOOD AND FLUIDS.
--- NOTE | 2020-12-18 04:05 | NUR ---
PATIENT REFUSED ALL LAB DRAWS, VITALS THIS AM.
--- NOTE | 2020-12-18 09:44 | NUR ---
PT NOW REFUSING MORNING MEDICATIONS WHEN SHE BEGAN CUSSING AT STAFF, PT REMINDED THAT HER VERBAL ABUSE AND BEHVIOR IS NOT APPROPRIATE AND WILL NOT BE TOLERATED. PT STS "ARE YOU FUCKING STUPID OR DEAF?" PT IS AGAIN TOLD THAT SHE WILL NOT CONTINUE TO DISRESPECT STAFF PT STS "WELL IF YOU HAVE A FUCKING PROBLEM WITH IT THEN LEAVE AND DON'T CPME BACK" REFUSED HER MEDICATIONS. CHARGE NURSE FREDDY IS NOTIFIED
[2020-12-18 10:34] LABS: Anion Gap 2 mmol/L (6-16); Blood Urea Nitrogen 15 mg/dL (8-24); Bun/Creatinine Ratio 36.5 (12.0-20.0); CO2, Blood 37 mmol/L (21-32); Chloride, Blood 93 mmol/L (98-108); Creatinine, Blood 0.41 mg/dL (0.40-1.00); Glomerular Filtration Rate >60 (60-); Glucose, Blood 237 mg/dL (70-99); Potassium, Blood 3.9 mmol/L (3.5-5.5); Sodium, Blood 132 mmol/L (136-145)
--- NOTE | 2020-12-18 15:50 | NUR ---
PT ARRIVED TO ROOM 348 FROM U 3 VIA W/C. 1 ASSIST TO STAND AND TRANSFER TO BED. PT ORIENTED TO ROOM AND CALL SYSTEM. BED IN LOWEST POSITION AND CALL MC[place]ON IN REACH. PT ASKING FOR SNACKS AND DRINKS. 1 TURKEY SANDWICH GIVEN. WILL MONITOR
--- NOTE | 2020-12-19 04:49 | NUR ---
SHIFT SUMMARY ALERT, ABLE TO MAKE NEEDS KNOWN. COOPERATIVE WITH CARE. CALLS AND ANSWERS QUESTIONS APPROPRIATELY. NO C/O PAIN/DISCOMFORT. 1P ASSIST TO BR /c FWW. JACKSON PATENT AND DRAINING TO GRAVITY. ENCOURAGED TO LIMIT SNACKING AND SLOW DOWN ON FLUIDS. CONTINUE TO REINFORCE. REFUSES SOME CARES; HOWEVER, ENCOURAGED THAT THE MORE SHE ALLOWS STAFF TO DO THE BETTER EVALUATION THE DOCTOR CAN MAKE FOR HER CARE. AGREEABLE. APPEARED TO HAVE RESTED MUCH OF THE NIGHT. NO ACUTE CHANGES NOTED OVERNIGHT. ALL MEDICATIONS GIVEN. BED REMAINED IN LOWEST POSITION; ALARM ON. CALL LIGHT AND BELONGINGS WITHIN REACH. CONTINUE WITH CURRENT PLAN OF CARE. REPORT TO ONCOMING RN.
--- NOTE | 2020-12-19 18:48 | NUR ---
PT HAS BEEN COOPERATIVE WITH CARE, CAN BE PARANOID AND SUSPICIOUS. ABLE TO MAKE NEEDS AND WANTS KNOWN. UP WITH 1-2 ASSIST. BED ALARM AND CHAIR ALARM USED FOR FALL PRECAUTIONS. JACKSON CATH REMOVED THIS MORNING, PT IS VOIDING AND IS INCONTINTENT. NO ACUTE CHANGES NOTED THIS SHIFT, WILL CONTINUE TO MONITOR AND REPORT TO ONCOMING RN
--- NOTE | 2020-12-20 06:38 | NUR ---
SUMMARY PT HAS NO NEW ISSUES NOTED. PT COOPERATIVE W/ CARE. PT SLEPT T/O SHIFT. PT CURRENTLY AWAKE IN NO DISTRESS. CALL LIGHT IN REACH AND BED ALARM ON.
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
--- NOTE | 2020-12-21 04:30 | NUR ---
SHIFT SUMMARY A/OX3, REFUSING MOST CARE THIS SHIFT. PT ASKING FOR FREQUENT SNACKS AND BECOMES AGITATED EASILY. CURRENTLY ON 5L VIA NC WITH SATS GREATER THAN 90. UP TO CHAIR X1 WITH 1 ASSIST. VSS, NO ACUTE CHANGES AT THIS TIME. BED IN LOWEST POSITION WITH CALL LIGHT IN REACH. WILL CONTINUE TO MONITOR AND REPORT TO ONCOMING RN.
--- NOTE | 2020-12-21 18:51 | NUR ---
END OF SHIFT NOTES: PATIENT CALM AND COOPERATIVE WITH MOST CARE. PATIENT IRRITABLE AND YELLING AT TIMES. PATIENT OFTEN CALM AND COOPERATIVE AFTER BEING ALLOWED TO HAVE SOME QUIET, ALONE TIME. PATIENT DOES NOT LIKE TO HAVE MULTIPLE STAFF IN HER ROOM AT ONE TIME. PATIENT UP TO THE CHAIR FOR MEALS. PATIENT HAS PARANOID THOUGHTS AT TIMES AND WILL RANDOMLY CHANGE THE TOPIC DURING A CONVERSATION.
--- NOTE | 2020-12-21 21:12 | NUR ---
PT MAKING VERY BIZARRE STATEMENTS AT PRESENT: "NIPPLES SORE D/T PEOPLE TUGGING AND TWISTING ON THEM", "I WAS A STRIPPER ON METH", "TOOK PAIN MEDS IN THE RIGHT AMOUNT BUT SOLD THEM TOO BECAUSE MONEY WAS TIGHT SO CAN'T GET THEM ANYMORE" AND SHE WAS OBSERVED TALKING TO SELF IF TO BE HAVING A DISCUSSION W/SOMEONE ELSE W/ONLY STAFF PRESENT IN ROOM. SHE'S PLEASANT AND COOPERATIVE AT THIS TIME BUT IS KNOWN TO BE LABILE.
--- NOTE | 2020-12-22 04:55 | NUR ---
SUMMARY: PT A/OX3 W/MILD CONFUSION AND FORGETFULLNESS TO SITUATION/EVENT. SHE HAS SCHIZOEFFECTIVE DISORDER AND WAS OBSERVED OCCASIONALLY SPEAKING TO SELF IF HAVING A CONVERSATION W/SOMEONE ELSE. SHE ALSO EXPERIENCES FLIGHTS OF IDEAS, PARANOIA, MAKES BIZARRE STATEMENTS AND CLAIMS (SEE NOTE FOR PREVIOUS DETAILS) AND APPEARS TO HALLUCINATE AT TIMES. MOOD IS LABILE BUT SHE'S BEEN PLEASANT AND COOPERATIVE W/CARE THIS SHIFT. SHE'S CONTINENT/INCONT W/ATTENDS CHANGED PRN. SNACKS PROVIDED PER SCHEDULE ON BOARD D/T FREQ REQUESTS FOR FOOD. PILLS ENJOYED IN SUGARFREE PUDDING AND DIET TOLERATED RX'D. SHE REMAINS ON 5L O2 VIA NC W/SPO2 WNL AND NO S/S RESP DISTRESS. VSS/AFEBRILE, NO ACUTE CHANGES. WCTM/REPORT TO DAY RN. PLAN FOR D/C TO [place] ON 01/01/21.
--- NOTE | 2020-12-22 18:37 | NUR ---
SHIFT SUMMARY PT SITTING UP TO CHAIR AT DURING SHIFT REPORT. PT IS A MORBIDLY OBESE DIABETIC WITH SCHIZO-AFFECTIVE SCHIZOPHRENIA. PT CAN BE PLEASANT ONE MINUTE AND VERY ANGRY AND MEAN THE NEXT. PT VOIDS HEAVILY AND BY CHOICE WILL SIT IN CHAIR AND VOID ON FLOOR. PT REFUSED TO ALLOW HOT BRAIDER OR ANY STAFF TO CLEAN HER UP OR THE FLOOR. THEREFORE SITE LEADER INSTRUCTED HOT BRAIDER TO PROVIDE SUPPLIES FOR PT TO CLEAN HERSELF UP TO AVOID SKIN BREAKDOWN BY SITTING IN URINE. PT THEN THREW ALL SUPPLIES, TUB OF SOAPY WATER, AND EVERYTHING ELSE IN REACH ACROSS THE ROOM, MAKING A BIG MESS. PER SHIFT REPORT, PT WAITING FOR A BED AT [facility]. PT UP OUT OF CHAIR AFTER LUNCH, TAKING A NAP AND THEN BACK TO CHAIR FOR DINNER. PT IS NOT RESTING QUIETLY IN BED; WARM BLANKETS GIVEN. PT DENIED FURTHER NEEDS. CALL LT IN REACH. BED ALARM ON FOR SAFETY.
--- NOTE | 2020-12-22 20:33 | NUR ---
VERIFIED VIDEO MONITORING CALLED VIDEO SOAP WORKER TO VERIFY VIDEO MONITORING IS IN PLACE
--- NOTE | 2020-12-23 04:16 | NUR ---
SHIFT SUMMARY ADMITTED FOR ACUTE RESPIRATORY FAILURE W/HYPOXIA. FULL CODE. PLAN IS FOR DC TO [email or web address] IN [place]. SHE HAS A POWERGLIDE IN [facility]. DR DE LEON IS PSYCHOLOGY CONSULT. 5 LPM O2 VIA NC. SHE IS HOMELESS, LIVING ALONE IN A MOTEL. SHE DID REFUSE VITAL SIGNS AND ASSESSMENT THIS SHIFT.
--- NOTE | 2020-12-23 17:27 | NUR ---
SHIFT SUMMARY PT HAS WANTED TO EAT/DRINK ALL SHIFT. STAFF HAS TO LIMIT PT ON WHAT SHE CAN EAT OR DRINK. PT CONTINENT/INCONTINENT OF URINE. THIS RN HAS ENCOURAGED PT TO CALL WHEN HAS AN URGER TO VOID. PT HAS BEEN COOPERATIVE WITH CARE. NO ACUTE CHANGES THIS SHIFT. WAITING FOR TRANSFER TO FACILITY JANUARY 01 PER NURSERY NURSE. WILL CONTINUE TO MONITOR. CALL LIGHT IN REACH. BED ALARM ON FOR SAFETY.
--- NOTE | 2020-12-24 04:22 | NUR ---
SHIFT SUMMARY ADMITTED FOR ACUTE RESPIRATORY FAILURE. FULL CODE. PLAN IS FOR DC TO [facility] IN [place] ON 01/01. PSYCH CONSULT IS DR DE LEON. SHE HAS SCHIZOAFFECTIVE SCHIZOPHRENIA. SHE IS REFUSING ASSESSMENTS, VITALS, CHEM BG'S, AND MEDICATIONS ON THIS SHIFT. SHE IS CONTINENT/INCONTINENT - REFUSING CHANGES AT TIMES. SHE LIVES ALONE IN A MOTEL ROOM. SHE IS ON XARELTO. SPEECH AND PHYSICAL THERAPIES ARE ASSISTING. LABILE MOODS. SHE DOES YELL, THROW THINGS, AND CURSE AT MEDICAL STAFF AT TIMES.
--- NOTE | 2020-12-24 16:52 | NUR ---
SHIFT SUMMARY PATIENT MEDICATED X1 FOR LEG PAIN, DENIES NAUSEA, AND SHORTNESS OF BREATH. PATIENT ASKS FOR FREQUENT SNACKS AND DRINKS BUT IS REDIRECTABLE TO SPREAD THEM OUT WHEN REMINDED OF THE NEED TO MANAGE HER BLOOD SUGAR. PATIENT AMBULATED IN HALLWAY TODAY. PATIENT CONTINENT TODAY, CALLING APPROPRIATELY TO BE TAKEN TO RESTROOM. MAINTAINING OXYGEN SATURATION ABOVE 92% ON 3.5L/NC.
--- NOTE | 2020-12-25 04:55 | NUR ---
SHIFT SUMMARY PT WAS PLEASANT AND COOPERATIVE W/CARE THIS SHIFT, TOOK ALL PM MEDS, SLEPT T/O THE NIGHT & SLEEPING AT THIS TIME, CALL LIGHT IN REACH, BED ALARM ACTIVE, WILL CONT TO MONITOR UNTIL REPORT GIVEN TO DAY RN.
--- NOTE | 2020-12-25 16:29 | NUR ---
SHIFT SUMMARY PATIENT MEDICATED X1 FOR LEG PAIN, DENIES NAUSEA, AND SHORTNESS OF BREATH. PATIENT MAINTAINING OXYGEN SATURATION ABOVE 92% ON 3L/NC. AMBULATED IN HALLWAY TWICE TODAY. UP SBA W/FWW. PENDING DISCHARGE TO [facility]. MINH FROM [facility] TO HAVE MEETING WITH PATIENT TOMORROW. PATIENT MAKES FREQUENT REQUESTS FOR SNACKS AND BEVERAGES, PATIENT REDIRECTABLE TO SPACE THEM OUT WHEN REMINDED OF BLOOD SUGAR AND GIVEN SCHEDULED TIMES FOR SNACKS/BEVERAGES.
--- NOTE | 2020-12-26 04:33 | NUR ---
SHIFT SUMMARY PT AGITATED THIS RN CAME ON SHIFT, MOODS REMAINED LABILE UNTIL ABOUT 0100 REQUIRING PRN EDILBERTO ADMIN, PT CALM AND WAS ABLE TO RELAX AFTER ADMIN, SLEEPING AT THIS TIME, CALL LIGHT IN REACH, BED ALARM ACTIVE, WILL CONT TO MONITOR UNTIL REPORT GIVEN TO DAY RN.
--- NOTE | 2020-12-26 17:13 | NUR ---
SHIFT SUMMARY PT HAS BEEN PLEASANT THIS SHIFT AND HER BLOOD GLUCOSE HAS BEEN WELL CONTROLLED. SHE HAD AN INTERVIEW WITH A FACILITY TODAY AND HAS BEEN ACCEPTED. SHE WILL GO TO THE FACILITY ON 01/07/21. VSS. UP IN THE CHAIR ALL SHIFT AND AMBULATING IN THE HALLWAY. CALL LIGHT IN REACH.
--- NOTE | 2020-12-27 04:02 | NUR ---
SHIFT SUMMARY PATIENT HAD NO ACUTE CHANGES OBSERVED. AXOX 2 AND AGITATED/DEFENSIVE AT TIMES. HX DEMENTIA WITH CONFUSION. TAKES MEDICATION WHOLE WITH PUDDING. POWERGLIDE COLTON INTACT. CBG 100. ON 3L O2 NC. VSS/AFEBRILE. DENIES PAIN, SOB, AND N/V. CALL LIGHT IN REACH. BED IN LOWEST POSITION. WILL CONTINUE TO MONITOR UNTIL DAY SHIFT NURSE ASSUMES CARE.
--- NOTE | 2020-12-27 18:11 | NUR ---
SHIFT SUMMARY NO ACUTE CHANGES OBSERVED THIS SHIFT. PT CONSTANTLY REQUESTS FOOD AND DRINK THROUGHOUT THE DAY AND BECOMES LABILE WITH STAFF AT TIMES. HOWEVER, PT'S BLOOD GLUCOSE LEVELS HAVE REMAINED ON THE LOWER SIDE. WILL REFUSE CARE AT TIMES. VSS. WILL REPORT TO MARSHA RN.
--- NOTE | 2020-12-27 19:28 | NUR ---
PATIENT IS AGITATED AT SHIFT CHANGE. YELLING AND SCREAMING FOR FOOD. ON CAMERA AND BED EXIT ALARM ACTIVATED WITH REMOTE MONITOR CALLING. PATIENT REFUSING ROPE CLEANER CARE. WCTM
--- NOTE | 2020-12-28 03:28 | NUR ---
SHIFT SUMMARY PATIENT AGITATED FIRST PART OF SHIFT DEMANDING FOOD SCREAMING AND YELLING. REPORTED SHE WOULD TRASH THE ROOM IF NOT GETTING FOOD. USING INAPPROPRIATE LANGUAGE. PATIENT REMINDED OF SCHEDULE CBG CHECKS AND GLUCOSE MONITORING. AXOX 3 WITH HX SCHIZOPHRENIA. TAKES MEDICATION WHOLE WITH PUDDING. ONE ASSIST TO BR. CBG 119. ON 3L O2 NC. VSS/AFEBRILE. DENIES PAIN, SOB, AND N/V. CALL LIGHT IN REACH. BED IN LOWEST POSITION. WILL CONTINUE TO MONITOR UNTIL DAY SHIFT NURSE ASSUMES CARE.
--- NOTE | 2020-12-28 18:43 | NUR ---
SHIFT SUMMARY: NO ACUTE CHANGES TO REPORT THIS SHIFT. PT ALERT; ORIENTED TO SELF. IRRITABLE; LABILE; COOPERATIVE WITH CARE AFTER DETAILED EXPLANATION FROM STAFF. AWAITING SAFE DISCHARGE PLAN; EXPECTED D/C TO [facility] -Dec. DEB.
--- NOTE | 2020-12-28 19:27 | NUR ---
PATIENT HAVING INCREASED AGITATION. YELLING SCREAMING IN ROOM USING INAPPROPRIATE LANGUAGE. NOT REDIRECTABLE AT THIS TIME.
--- NOTE | 2020-12-29 03:09 | NUR ---
SHIFT SUMMARY PATIENT HAD NO ACUTE CHANGES OBSERVED. CONTINUES TO YELL/SCREAM FOR FOOD. AXOX 3 WITH CONFUSION AND UNABLE TO REDIRECT AT TIMES. USES INAPPROPRIATE LANGUAGE. HX OF SCHIZOPHRENIA. ON 3L O2 NC. CBG 87. HAVING BM'S THIS SHIFT. POWERGLIDE COLTON INTACT. DENIES PAIN, SOB, AND N/V. VSS/AFEBRILE. SITS IN CHAIR AT TIMES. CALL LIGHT IN REACH. BED IN LOWEST POSITION. WILL CONTINUE TO MONITOR UNTIL DAY SHIFT NURSE ASSUMES CARE.
--- NOTE | 2020-12-29 17:02 | NUR ---
SHIFT SUMMARY PATIENT A/O X3 THIS SHIFT. NO ACUTE CHANGES THIS SHIFT. PATIENT CONTINUES TO MAKE INAPPROPRIATE REMARKS AT TIMES. PATIENT ON 3L O2, REMOVES AT TIMES. PATIENT UP WITH SBA USING FWW. PATIENT CALLS OUT FREQUENTLY FOR SNACKS AND ADDITIONAL DRINKS. PATIENT ALTERNATING SITTING IN CHAIR AND LYING IN BED. PATIENT WALKED IN THE WHEELER WITH FWW SEVERAL TIMES THIS SHIFT. PATIENT CURRENTLY SITTING UP IN CHAIR.
--- NOTE | 2020-12-30 04:13 | NUR ---
SHIFT SUMMARY- PT. ANGRY AND IRRITABLE ON/OFF DURING THE NIGHT. CONSTANTLY SNACKING AND DRINKING FLUIDS T/O THE NIGHT, STATING "I'M SO HUNGRY". SCHEDULED MEDS TAKEN W/O DIFFICULTY. PT. INCONT OF URINE, VOIDED ON ROOM FLOOR. REFUSED ATTENDS TO BE PUT ON. PT. CLEANED UP IN BATHROOM AND AMBULATED W/WALKER TO BED. PT. SLEPT THE REST OF THE NIGHT, NO APPARENT DISTRESS NOTED. HAD NO COMPLAINTS OF PAIN OR DISCOMFORT, VSS. CALL LIGHT WITHIN REACH, SIDE RAILS UPX2, AND BED ALARM ON. WILL CONT TO MONITOR.
--- NOTE | 2020-12-30 16:48 | NUR ---
SHIFT SUMMARY PATIENT ALERT AND ORIENTED THIS SHIFT. PATIENT REFUSING CARE AND MEDICATIONS THROUGHOUT THIS SHIFT, LATER ACCEPTING OR REQUESTING SAME CARE. PATIENT RESTING IN BED THROUGHOUT MUCH OF THIS SHIFT. PATIENT CONTINUES TO HAVE OCCASIONAL INAPPROPRIATE STATEMENTS. NO ACUTE CHANGES THIS SHIFT. PATIENT CURRENTLY LYING IN BED AWAITING DINNER.
--- NOTE | 2020-12-31 04:05 | NUR ---
SUMMARY PT QUIET AND SLEEPING FOR MOST OF SHIFT. NO ISSUES NOTED. PT CURRENTLY SLEEPING IN NO DISTRESS.CALL LIGHT IN REACH.
--- NOTE | 2020-12-31 19:03 | NUR ---
changable moods, hates and loves with equal abandon, swears eternal hate and declares devotion to same person within moments, call light in reach, saline locked, will share bsr with noc nurse, ok air, up walking in amin way with staff
--- NOTE | 2021-01-01 04:06 | NUR ---
SUMMARY PT HAD NO NEW ISSUES NOTED. PT HAS SLEPT T/O SHIFT. PT CURRENTLY SLEEPING IN NO DISTRESS. CALL LIGHT IN REACH AND BED ALARM ON. PT COOPERATIVE THIS SHIFT.
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
--- NOTE | 2021-01-02 04:11 | NUR ---
SHIFT SUMMARY ASSUMED CARE OF PT AT 1900. PT IS A/OX4 BUT VERY AGGITATED AT THE BEGINNING OF THE SHIFT. PT REFUSED ALL CARE. AFTER A COUPLE HOURS PT WAS MORE WILLING TO PARTICIPATE IN CARE. PT WAS VERY DEPRESSED THIS EVENING. PT TALKED ABOUT HOW SHE USED FOOD FOR COMFORT AND HOW HER LIFE IS MEANINGLESS. PT ASKED FOR SNACKS REPEATIVLY. HEART SOUNDS REGULAR, LUNG SOUNDS CLEAR. PT CHOSE TO BE INCONTIENT OF URINE INSTEAD OF WALKING TO THE BATHROOM. PT WAS CONTIENT OF BOWELS. PT LOWER EXREMITES ARE SWOLLEN AND RED. CALL LIGHT IN REACH, BED IN LOWEST POSTION, BED ALARM ON, CAMERA ON.
--- NOTE | 2021-01-03 04:35 | NUR ---
SHIFT SUMMARY ASSUMED CARE OF PT AT 1900. PT IS A/OX4 PT ONLY HAD ONE OUTBURST THIS PM. HEART SOUNDS REGULAR, LUNG SOUNDS DIMINISHED. PT WAS INCONTIENT T/O THE SHIFT. PT LEGS ARE DISCOLORED AND EDEMADOUS. PT WAS MEDICATED FOR PAIN. WHEN PT ASKED THIS AM FOR ANOTHER NORCO, PT WAS REMINDED SHE CAN ONLY HAVE TYLENOL, PT SAID THAT SHE DIDNT WANT CHEAP MEDICATIONS. CALL LIGHT IN REACH, BED IN LOWEST POSITION, BED ALARM ON, CAMERA MONITORING.
--- NOTE | 2021-01-03 06:18 | NUR ---
PT REFUSED VITALS X2. NURSE NOTIFIED.
--- NOTE | 2021-01-03 11:07 | NUR ---
PTS AGGRESSION THIS AM UPON ENTERING THE ROOM AND ATTEMPTING A SHIFT ASSESSMENT OF THE PT SHE IMEDIATLY BECAME AGGRESSIVE TOWARD THIS RN AND YELLED OUT THAT IS WAS NOT OT TOUCH HER. IN A CLAM VOICE I TOLD THE PT THAT I ONLY WANTED TO LISTEN TO HER BREATH SOUNDS AND HEART SOUNDS. THE PT BECAME AGGRESSIVE AND SAID THAT SHE WOULD SCREAM RAPE IF I TOUCHED HER. I TOLD THE PT THAT HER ROOM WAS BEING MONITOERED ON CAMERA AND THAT AGGRESION WOULD NOT WORK. I TOLD THE PT THAT I WOULD NOT DO MY ASSESSMENT, AND WOULD LEAVE HER ROOM IF THAT IS WHAT SHE WISHED. THE CHARGE NURSE WAS NOTIFYED AND THE CHARGE NURSE ADMINISTERED THE PT'S AM MEDICATIONS AND INSULIN COVERAGE
--- NOTE | 2021-01-03 17:08 | NUR ---
THE PT IS A/OX3, THIS AM THE PT BECAME AGGRESIVE AT THIS RN AND REFUSED CARE FROM THIS RN, TOWARD THE AFTERNOON THE PT BECAME MORE COOPERATIVE. THE PT IS UP INDEPENDANTLY IN HER ROOM. THE PT APPEARS TO BE BREATHING EASILY ON O2 AT THIS TIME, AT TIMES SHE TAKES OFF HER O2. THE PT WAS MEDICATED WITH TYLENOL X1 FOR PAIN TODAY. CALL LIGHT IN REACH. WILL CONTINUE TO MONITOR FOR CHANGES
--- NOTE | 2021-01-03 23:03 | NUR ---
ASSESSMENT REFUSAL PT REFUSED TO HAVE HER VITALS DONE OR HER BLOOD SUGAR DONE. PT CALLED THE SENIOR COMMUNICATIONS ENGINEER AND THIS NURSE "DUMB BITCHS". WHEN THIS NURSE WENT TO ASK PT FOR VITALS A THIRD TIME AND IF SHE WOULD LIKE TO TAKE HER MEDICATION, PT DID NOT SPEAK BUT HELD UP TWO MIDDLE FINGERS. CALL LIGHT IN REACH, BED IN LOWEST POSITION, CAMERA MONITORING.
--- NOTE | 2021-01-04 04:33 | NUR ---
SHIFT SUMMARY ASSUMED CARE OF PT AT 1900. PT REFUSED ALL CARE THIS SHIFT. PT REFUSED TO BE CHANGED, THE SMELL OF URINE CAN BE SMELLED FROM THE DOOR. PT SLEPT T/O THE NIGHT. CALL LIGHT IN REACH, BED IN LOWEST POSTION, CAMERA MONITORING.
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
--- NOTE | 2021-01-04 18:24 | NUR ---
REFUSED DINNER INSULIN PT REFUSED DINNER INSULIN AND COREG MEDICATION. STATED THAT WE WERE TRYING TO KILL HER
--- NOTE | 2021-01-04 21:12 | NUR ---
PT TOLD PATHOLOGY LABORATORY AIDE SHE WANTED TYLENOL. WHEN THIS RN WENT IN THE ROOM PT WAS LAYING IN THE BED AWAKE. RN ASKED PT ABOUT TYLENOL. PT TOLD RN TO "GET OUT" AND POINTED TO THE DOOR. PT STARTED TO GET OUT OF BED AND COMING AFTER THIS RN. PT REFUSED HEAD TO TOE ASSESSMENT, REFUSED VITALS AND BLOOD SUGAR CHECK. WILL CONTINUE TO MONITOR.
--- NOTE | 2021-01-04 23:48 | NUR ---
PT VOIDED IN ATTENDS. PT HAS VOIDED IN ATTENDS AND GOWN IS WET WELL. ALMOND PAN FINISHER AND THIS RN TRIED TO CONVIENCE PT TO LET US CHANGE HER MANY TIMES. PT YELLED AT STAFF AND SCREAMED AT US TO GET OUT. PT SAID " I ONLY LET MY MAN TOUCH ME" CAMERA ON, CALL LIGHT WITHIN REACH. WILL CONTINUE TO MONITOR.
--- NOTE | 2021-01-05 06:03 | NUR ---
TRANSPORTATION DRIVER SUMMARY PT REFUSED ALL CARE NOC SHIFT INCLUDING PM AND AM VITALS, BLOOD SUGARS AND HEAD TO TOE ASSESSMENT. PT SLEPT WELL TONIGHT. STAFF TRIED TO CONVIENCE PT EARILER IN SHIFT TO HAVE US CHANGE PT'S ATTENDS THEY WERE WET. PT GLARED AT STAFF AND YELLED AT US TO GET OUT. STAFF ASKS PT AGAIN THIS MORNING TO CHANGE PT THE BED WAS SOAKED IN URINE. PT YELLED AT STAFF AGAIN AND TOLD US TO GET OUT. SECURITY AND CLINICAL COORDINATOR CALLED TO HELP OUT. PT TOOK A LONG TIME CONVIENCING TO GET OUT OF BED SO STAFF CAN CHANGE SHEET, GOWN, UNDERWEAR AND SOCKS. PT STOOD UP AND VOIDED ON THE FLOOR WHILE STAFF CHANGED THE SHEETS. PT REFUSED VITALS AND MEDS. CURRENTLY IN BED RESTING. CALL LIGHT WITHIN REACH, WILL CONTINUE TO MONITOR.
--- NOTE | 2021-01-05 10:44 | NUR ---
PT REFUSED ASSESSMENT BY THIS RN. PT TOOK MEDICATIONS FROM FEMALE RN WHO HAS GOOD REPORT WITH PT.
--- NOTE | 2021-01-05 18:25 | NUR ---
SHIFT SUMMARY. PT MORE COOPERATIVE WITH CARE TODAY, TOOK ALL MEDICATIONS AND WAS CONTINENT. PT DENIES PAIN, SOB, N/V. NO OTHER CHANGES OR CONCERNS.
--- NOTE | 2021-01-06 05:00 | NUR ---
SHIFT SUMMARY AOX3. PLEASENT & COOPERATIVE c CARE TONIGHT, TOOK ALL MEDS. FLAT AFFECT. DENIED ANY HALLUCINATIONS TONIGHT, STATES SHES HAD THEM BEFORE THOUGH. FOLLOWS DIRECTIONS. REPORTS SHE CAN "SPEAK IN TONGUES," & STARTED SPEAKING NONSENSICAL JIBBERISH. REPORTED ABD PAIN & ASKED FOR TYLENOL 1X, NO FURTHER REPORTS DISCOMFORT. DENIES N/V, OR SOB. VSS. SPO2 >90% ON 4L O2. +3 EDEMA BLE, PEDAL EDEMA +4. HS CBG @152. INCONT/CONT OF URINE, OCC WILL VOID ON FLOOR, CHANGED PRN. CALL LIGHT IN REACH. PLAN TO DC 01/07 TO [facility] IN [place]. TM.
--- NOTE | 2021-01-06 19:58 | NUR ---
END OF SHIFT SUMMARY: PATIENT DENIED PAIN THROUGHOUT SHIFT. PATIENT AGREED TO A SHOWER AND ALLOWED STAFF TO ASSIST. PATIENT UP TO THE CHAIR FOR MEALS. PATIENT VISITED BY HER GUARDIAN. HER GUARDIAN BROUGHT IN REQUESTED SUPPLIES. PATIENT REPORTS THAT SHE IS EXCITED TO DISCHARGE TOMORROW. NO SIGNS OF RESPIRATORY DISTRESS OR SHORTNESS OF BREATH THROUGHOUT THE SHIFT.
--- NOTE | 2021-01-07 06:37 | NUR ---
SHIFT SUMMARY AOX3. REFUSED AM VITALS. HS VITALS WNL EXCEPT SPO2 LOW 80'S SINCE PT REMOVED 4L O2 & REFUSED TO PLACE IT BACK WHILE EATING. ENCOURAGED O2 PLACEMENT. OCC REFUSES CARE UNLESS SHE GETS SODA OR SNACK. STATES BURNING GROIN PAIN, ASKED FOR TYLENOL, REFUSED NYSTATIN POWDER. IRRITATED c NEEDLE SETTER THIS AM, CURSING VULGAR WORDS AT HER. ASKED PT TO STOP TALKING TO STAFF INAPPROPRIATELY. INCONT/CONT OF URINE. +4 EDEMA BLE. HS CBG @303. CALL LIGHT IN REACH, PT UP AMBULATING TO WHEELER TO INFORM STAFF OF NEEDS. PLAN TO DC TODAY TO [facility]. WCTM UNTIL DAY NURSE ASSUMES CARE.
[2021-01-07] MEDS ORDERED: COLACE100 MG PO (09:12)
[2021-01-07] MEDS ORDERED: CLON.1 PO (09:12)
[2021-01-07] MEDS ORDERED: FAMO20 PO (09:13)
[2021-01-07] MEDS ORDERED: FURO40 PO (09:13)
[2021-01-07] MEDS ORDERED: HUMALOG KW100 UNIT/1 SC ×2 (09:14→09:15)
[2021-01-07] MEDS ORDERED: INSULANPEN SC (09:14)
[2021-01-07] MEDS ORDERED: Nicoderm Cq1 EAC1 TOP (09:16)
[2021-01-07] MEDS ORDERED: QUET300 PO (09:16)
[2021-01-07] MEDS ORDERED: XARELTO20 MG PO (09:16)
[2021-01-07] MEDS ORDERED: ANORO ELLIPTA1 EACH INH (09:17)
--- NOTE | 2021-01-07 10:19 | NUR ---
PATIENT D/C'D TO [facility] IN [place] VIA GURNEY TRANSPORT. MESSAGE LEFT AT THE FACILITY TO CALL BACK FOR A REPORT. O2 AT 4LO2 VIA MS CONTINOUSLY. PACKET GIVEN TO AERONAUTICAL DESIGN ENGINEER. POWERGLIDE REMOVED. PATIENT DENIES ANY FURTHER QUESTIONS OR CONCERNS. AWAITING CALL BACK FROM [facility]
== END 2021-01-07 10:19 | disposition home or self-care (01) | DRG 193 ==
LOC: ER 04:13 → PCU 05:25 → MEDS 05:25 → ERHOLD 05:25 → PCU 10:25 → MEDS 12-18 15:46
PROVIDERS: Family Medicine; Hospitalist; Student in an Organized Health Care Education/Training Program; ADMIT Internal Medicine
DX: J18.9 Pneumonia, unspecified organism (principal); J96.21 Acute and chronic respiratory failure with hypoxia; G92 Toxic encephalopathy; J96.22 Acute and chronic respiratory failure with hypercapnia; J44.1 Chronic obstructive pulmonary disease with (acute) exacerbation; J44.0 Chronic obstructive pulmonary disease with (acute) lower respiratory infection; F03.91 Unspecified dementia, unspecified severity, with behavioral disturbance; Z68.43 Body mass index [BMI] 50.0-59.9, adult; E87.1 Hypo-osmolality and hyponatremia; E87.3 Alkalosis; E66.2 Morbid (severe) obesity with alveolar hypoventilation; I10 Essential (primary) hypertension; Z71.6 Tobacco abuse counseling; E11.9 Type 2 diabetes mellitus without complications; F20.9 Schizophrenia, unspecified; F17.210 Nicotine dependence, cigarettes, uncomplicated; E78.5 Hyperlipidemia, unspecified; Z88.0 Allergy status to penicillin; Z88.8 Allergy status to other drugs, medicaments and biological substances; Z79.899 Other long term (current) drug therapy; Z86.718 Personal history of other venous thrombosis and embolism; Z91.14 Patient's other noncompliance with medication regimen
CPT/HCPCS: 36415; 51702; 71045; 80048; 80053; 81003; 82803; 82947; 83036; 83880; 84484; 85025; 92526; 92610; 93005; 93010; 94640; 94660; 94760; 94762; 96372-59; 96374; 96375; 97110; 97162; 97165; 97530; 98960; 99285-25; A9270; J0696; J1650; J1815; J1940; J2930; J3486; J7050; J7512